=== PATIENT | male | born 1965 | race Caucasian/White ===

== ENCOUNTER → 2017-07-27 | Outpatient (CLI) | payer OTHER ==
[~2017-07-27] MED LIST: KLN5X PO; METO50TA17 PO; SIMV20TA2 PO
--- NOTE | 2017-07-27 17:21 | DIAGNOSTIC IMAGING REPORT ---
L-SPINE MIN 4 VIEWS ROUTINE CLINICAL HISTORY: Back pain status post trauma COMPARISON STUDY: No previous studies for comparison. FINDINGS: There are 5 lumbar type vertebral bodies present. No fractures or subluxations are visualized. There are degenerative changes most pronounced the L5-S1 level. IMPRESSION: 1. No acute fractures 2. Degenerative changes most pronounced the L5-S1 level Electronically signed by: Smooth Forde M.D. 07/27/2017 5:20 PM Dictated Date/Time: 07/27/2017 5:19 PM
--- NOTE | 2017-07-27 17:26 | DIAGNOSTIC IMAGING REPORT ---
THORACIC SPINE 3 VIEWS ROUTINE CLINICAL HISTORY: Thoracic spine pain status post trauma COMPARISON STUDY: No previous studies for comparison. FINDINGS: The paraspinal line is not displaced. There is a mild thoracic dextroscoliosis. There are multilevel degenerative changes. No acute fractures are visualized on conventional radiographic imaging. IMPRESSION: Multilevel degenerative change. No acute fractures or subluxations identified on conventional radiographic imaging. Thoracic scoliosis. Electronically signed by: Smooth Forde M.D. 07/27/2017 5:25 PM Dictated Date/Time: 07/27/2017 5:24 PM
--- NOTE | 2017-07-27 17:28 | DIAGNOSTIC IMAGING REPORT ---
L RIBS UNILATERAL WITH PA CHEST CLINICAL HISTORY: Left rib pain status post trauma COMPARISON STUDY: No previous studies for comparison. FINDINGS: The erect chest reveals no evidence of pneumothorax. There is no focal pulmonary consolidation. No left-sided rib fractures are visualized. IMPRESSION: No evidence of pneumothorax. No left-sided rib fractures are visualized. Electronically signed by: Smooth Forde M.D. 07/27/2017 5:27 PM Dictated Date/Time: 07/27/2017 5:26 PM
== END | disposition home or self-care (01) ==
LOC: C.RAD 15:50
PROVIDERS: ATTEND Internal Medicine
DX: T14.8XXA Other injury of unspecified body region, initial encounter (principal); W19.XXXA Unspecified fall, initial encounter

== ENCOUNTER 2022-09-08 07:45 | Inpatient (IN) ==
[2022-09-08] MEDS ORDERED: SODIUM CHLORIDE 0.9% 1000ML 1,000 ML IV SCH ×2 (08:17→10:06)
--- NOTE | 2022-09-08 08:21 | Emergency Department Note ---
History of Present Illness General Chief complaint: Illness Stated complaint: CHILLS,FEVER,NEURO ISSUES WITH LEGS,FALL Time Seen by Provider: 09/08/22 07:56 History of Present Illness Maximum Pain Intensity: 7 Patient is a 57-year-old male with past medical history significant for hyperte nsion, A-fib on metoprolol and Xarelto, dyslipidemia, anxiety disorder, and history of ataxia/lower extremity weakness who presents emergency department for evaluation of an illness x1 week. He reports subjective fever, chills, sweats, cough, nausea and anorexia that started last Thursday, 9 days ago. He reports decreased oral intake, no vomiting but has had diarrhea. He reports he has been compliant with his medications, except for missing a dose of Xarelto last week. He has tried Tylenol Cold and Flu for his symptoms without relief. He is not sleeping well. He reports that he has been evaluated for a chronic lower extremity weakness/balance disorder in the past with unclear diagnosis. Since he has been ill he has had worsening lower extremity weakness, he had a fall a few days ago where he hit the right calf off of his coffee table and since then it has been swollen and painful. He has been feeling generally weak and dizzy. He has not done any type of COVID testing. He does report he is vaccinated for COVID but not influenza. No sick contacts. He tried to call his family doctor but cannot get in until September. He denies any chest pain, shortness of breath, or palpitations. Home Medications Medication Instructions Recorded Confirmed Type metoprolol tartrate 50 mg tablet 50 mg PO BID #60 tabs 01/17/19 09/08/22 History rivaroxaban 20 mg tablet 20 mg PO DAILY #90 tabs 01/17/19 09/08/22 History simvastatin 40 mg tablet 40 mg PO DAILY #90 tabs 01/17/19 09/08/22 History B-complex with vitamin C 1 cap PO DAILY 09/08/22 09/08/22 History Allergies Allergy/AdvReac Type Severity Reaction Status Date / Time Penicillins Allergy Unknown Verified 09/08/22 13:14 Past Med/Surg History Medical History Anticoagulant long-term use Ataxia Atrial fibrillation Bilateral pulmonary embolism Degenerative cervical spinal stenosis DVT (deep venous thrombosis) Hypercholesterolemia Leg weakness, bilateral Muscle weakness (generalized) 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 Panic disorder Rupture of left biceps tendon Tobacco use Surgical History H/O medial meniscus repair of right knee Family History Father Cardiac disorder Stroke Brother Testicular cancer Social History Smoking Status: Never smoker Tobacco Type: Smokeless Tobacco (Dip or Chew) Do You Dip or Chew Tobacco: Yes; Hx Alcohol Use: Yes Alcohol type: beer Alcohol type Comment: 2 drinks at time Alcohol Intake Frequency: 2-3 x/Week Hx Substance Use: No Current Living Situation: Alone current occupational status: employed 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 [employer] Feels Safe at Home: Yes Review of Systems A total of 10 systems reviewed and were otherwise negative Physical Exam Vital Signs Vital Signs - 24 hr 09/08/22 07:49 09/08/22 08:02 09/08/22 08:20 Temperature 37.2 C Temperature Source Skin Pulse Rate 100 H 92 H Pulse Rate [Right Finger] 93 H Pulse Rate from SpO2 Sensor Pulse Rhythm [Right Finger] Regular Pulse Strength [Right Finger] Respiratory Rate 20 18 Respiratory Effort / Characteristics Non-Labored Spontaneous Non-Labored Spontaneous Respiratory Depth Normal Normal Respiratory Pattern Regular Regular Blood Pressure 175/95 H Blood Pressure [Left Arm] 164/105 H Blood Pressure Mean 121 Blood Pressure Mean [Left Arm] 124 Blood Pressure Position [Left Arm] Semi-fowlers Pulse Oximetry 95 96 Oxygen Delivery Method Room Air Room Air Sepsis Recent Fever Within 48 Hours No Sepsis New/Unexplained Change in Mental Status N/A Sepsis Action Taken by Nursing No Action Required 09/08/22 10:00 09/08/22 09:00 09/08/22 08:09 Temperature Temperature Source Pulse Rate 94 H Pulse Rate [Right Finger] 94 H 87 Pulse Rate from SpO2 Sensor 96 H Pulse Rhythm [Right Finger] Regular Regular Pulse Strength [Right Finger] Normal Respiratory Rate 21 20 22 Respiratory Effort / Characteristics Non-Labored Spontaneous Non-Labored Spontaneous Respiratory Depth Normal Normal Respiratory Pattern Regular Regular Blood Pressure Blood Pressure [Left Arm] 148/88 H 150/91 H Blood Pressure Mean Blood Pressure Mean [Left Arm] 108 110 Blood Pressure Position [Left Arm] Lying Lying Pulse Oximetry 95 94 96 Oxygen Delivery Method Room Air Room Air Sepsis Recent Fever Within 48 Hours Sepsis New/Unexplained Change in Mental Status Sepsis Action Taken by Nursing 09/08/22 08:30 09/08/22 09:00 09/08/22 09:00 Temperature Temperature Source Pulse Rate 91 H 87 Pulse Rate [Right Finger] Pulse Rate from SpO2 Sensor Pulse Rhythm [Right Finger] Pulse Strength [Right Finger] Respiratory Rate 21 19 Respiratory Effort / Characteristics Respiratory Depth Respiratory Pattern Blood Pressure 150/91 H Blood Pressure [Left Arm] Blood Pressure Mean 110 Blood Pressure Mean [Left Arm] Blood Pressure Position [Left Arm] Pulse Oximetry Oxygen Delivery Method Sepsis Recent Fever Within 48 Hours Sepsis New/Unexplained Change in Mental Status Sepsis Action Taken by Nursing 09/08/22 10:00 09/08/22 10:00 09/08/22 10:34 Temperature Temperature Source Pulse Rate 94 H Pulse Rate [Right Finger] Pulse Rate from SpO2 Sensor Pulse Rhythm [Right Finger] Pulse Strength [Right Finger] Respiratory Rate 21 15 Respiratory Effort / Characteristics Respiratory Depth Respiratory Pattern Blood Pressure 148/88 H Blood Pressure [Left Arm] Blood Pressure Mean 108 Blood Pressure Mean [Left Arm] Blood Pressure Position [Left Arm] Pulse Oximetry Oxygen Delivery Method Sepsis Recent Fever Within 48 Hours Sepsis New/Unexplained Change in Mental Status Sepsis Action Taken by Nursing 09/08/22 11:01 09/08/22 11:30 09/08/22 12:00 Temperature Temperature Source Pulse Rate 104 H 92 H 95 H Pulse Rate [Right Finger] Pulse Rate from SpO2 Sensor Pulse Rhythm [Right Finger] Pulse Strength [Right Finger] Respiratory Rate 20 19 22 Respiratory Effort / Characteristics Respiratory Depth Respiratory Pattern Blood Pressure 180/103 H Blood Pressure [Left Arm] Blood Pressure Mean 128 Blood Pressure Mean [Left Arm] Blood Pressure Position [Left Arm] Pulse Oximetry 93 Oxygen Delivery Method Room Air Sepsis Recent Fever Within 48 Hours Sepsis New/Unexplained Change in Mental Status Sepsis Action Taken by Nursing CONSTITUTIONAL: Patient is a well-appearing 57-year-old male who is awake and alert and in no acute distress laying on the gurney. EYES: Pupils equal, round, reactive to light and accommodation. EOMs intact without nystagmus. Sclera are anicteric. ENT: Tympanic membranes intact, with normal landmarks. External canals are clear. Oral and nasopharynx are clear. Mucous membranes are moist, no lesions, tongue and gums appear normal. NECK: Supple without lymphadenopathy. No thyromegaly. No meningeal signs. Full active range of motion without discomfort. CARDIOVASCULAR: Regular rate and rhythm, no murmur appreciated. Peripheral pulses easy to palpable. RESPIRATORY: Breath sounds equal and clear to auscultation without wheezes, rales, or rhonchi heard. Full and equal chest expansion without accessory musc le use or retractions. GI: Bowel sounds are present. Well-healed surgical scar noted. Abdomen is soft, nontender, nondistended. No organomegaly. No pulsatile masses. No guarding or rebound. MUSCULOSKELETAL: Examination of the right lower extremity notes mild swelling of the right calf. The calf is firm to the touch, no erythema, increased warmth, induration or palpable cords however. 1+ pitting edema noted. Full range of motion of extremities x 4 with good strength. INTEGUMENTARY: No lesions or rash, normal skin turgor. NEUROLOGICAL: Alert, oriented, and cooperative. Cranial nerves, sensation and strength grossly intact. Pupils round, equal, and react to light, EOMs are full. LYMPH: No lymphadenopathy. Course Course Patient was seen and assessed as above. External medical records are reviewed. He presents to the emergency department for evaluation of a "flulike" illness over the last week, with associated right leg pain and swelling in the history of a DVT in the past. He is chronically anticoagulated with Xarelto. He does note that his last dose of Xarelto was early yesterday morning. He missed 1 dose last week as his prescription was about to run out and he was trying to stretch the prescription. IV lock was initiated and laboratory studies were collected. CBC with differential, coags, urinalysis, CMP and a BioFire nasal swab was collected. He was hydrated with normal saline solution. He was observed on the satellite project site monitor. EKG and chest x-ray were obtained. A Doppler of the right lower extremity was performed. Laboratory studies per my interpretation note a normal white count at 7100, left shift noted. No anemia. No coagulopathy. No thrombocytopenia. Electrolytes are without significant abnormality requiring correction. Renal functions are normal. Transaminases are not elevated. Urine microscopy was clear. A BioFire was negative for acute viral URI pathology. Chest x-ray per my interpretation is clear, no infiltrate consistent with pneumonia. Ultrasound of the right lower extremity per my interpretation is consistent with extensive DVT. EKG per my interpretation notes a normal sinus rhythm at 87 bpm. No ectopy. No acute ischemic changes. No change on review of old EKG from 2015. Cardiac monitoring: An order was placed for continuous cardiac monitoring. The monitor shows a sinus tachycardia between 90 and 100 bpm. Patient was reassessed. All laboratory studies, EKG, x-ray and ultrasound were reviewed with the patient. Given the extent of the right lower extremity DVT, I did recommend performing CT of the chest to evaluate for chest involvement. He was in agreement. CTA of the chest per my interpretation notes bilateral pulmonary emboli with evidence for right heart strain. CT findings were reviewed with the patient. After review of the information above and other included data, I feel the patient requires admission for further care and appropriate anticoagulation. Case was reviewed with attending physician, Dr. Rosales, and discussed with the ED pharmacist, Bia Ma. He was started on weight-based heparin per protocol. I did review the case with the ED for human services case manager regarding admission. [facility], and admitted for further care and management. Administered Medications Heparin Sodium/Dextrose (Heparin Sodium/Dextrose) 25,000 units in 500 mls @ 26 mls/hr IV .[id number] OMID; Protocol Stop: 10/08/22 11:44 Last Admin: 09/08/22 12:11 Dose: 1,300 units/hr, 26 mls/hr Documented By: Co-signed By: LOLLY Discontinued Medications Heparin Sodium (Porcine) (Heparin Sod (Porcine) 1000 Unit/Ml) 1 units IV NOW ONE Stop: 09/08/22 11:36 Last Admin: 09/08/22 12:10 Dose: 6,000 units Documented By: Co-signed By: LOLLY Heparin Sodium/Dextrose (Heparin Iv Adult Wt-Based Standard With Bolus Protocol) 1 each IV NOW STA; Protocol Stop: 09/08/22 11:16 Last Admin: 09/08/22 12:19 Dose: Not Given Documented By: LOLLY Sodium Chloride (Nss 1000ml) 1,000 mls @ 999 mls/hr IV .Q1H1M OMID Stop: 09/08/22 09:17 Last Infusion: 09/08/22 10:05 Dose: 0 mls/hr Documented By: Admin: 09/08/22 08:53 Dose: 999 mls/hr Documented By: Sodium Chloride (Nss 1000ml) 1,000 mls @ 999 mls/hr IV .Q1H1M OMID Stop: 09/08/22 11:06 Last Infusion: 09/08/22 12:11 Dose: 0 mls/hr Documented By: Admin: 09/08/22 10:54 Dose: 999 mls/hr Documented By: LOLLY Ioversol (Optiray 320 125ml) 111 ml IV ONCE ONE Stop: 09/08/22 10:34 Last Admin: 09/08/22 10:33 Dose: 111 ml Documented By: MELISSA Medical Decision Making Differential Diagnosis Differential diagnoses entertained included viral illness including COVID or i nfluenza, right lower extremity DVT, cellulitis, superficial thrombophlebitis, pulmonary embolism, pneumonia, ACS, bronchitis, pulmonary infarct, among others. Medical Records Attestation: I reviewed the patient's medical records. Home Medications Current Medication List: was personally reviewed by me Laboratory Data Attestation: I reviewed the patient's lab results. 09/08/22 08:40 09/08/22 08:40 Lab Results 09/08/22 09/08/22 09/08/22 Range/Units 08:40 08:40 08:40 WBC 7.14 (4.8-10.8) K/ul RBC 4.68 L (4.70-6.10) M/uL Hgb 14.9 (14.0-18.0) g/dl Hct 44.4 (42.0-52.0) % MCV 94.9 (80.0-100.0) fL MCH 31.8 (25.0-34.0) pg MCHC 33.6 (32.0-36.0) g/dL RDW Std Deviation 45.6 (36.4-46.3) fL RDW Coeff of Jacquelyn 13.2 (11.5-14.5) % Plt Count 136 (130-400) K/uL MPV 9.4 (9.4-12.4) fL Immature Gran % (Auto) 0.1 % Neut % (Auto) 75.9 % Lymph % (Auto) 12.9 % [place] % (Auto) 9.8 % Eos % (Auto) 0.6 % Baso % (Auto) 0.7 % Neut # (Auto) 5.42 (1.40-6.50) K/uL Lymph # (Auto) 0.92 L (1.2-3.4) K/uL [place] # (Auto) 0.70 H (0.11-0.59) K/uL Eos # (Auto) 0.04 (0-0.50) K/uL Baso # (Auto) 0.05 (0-0.2) K/uL Immature Gran # (Auto) 0.01 (0.01-0.20) K/uL PT 10.7 (9.0-12.0) Seconds INR 1.0 (0.9-1.1) APTT 28.0 (21.0-31.0) Seconds PTT Ratio 1.0 Sodium 135 L (136-145) mmol/L Potassium 3.5 (3.5-5.1) mmol/L Chloride 99 (98-107) mmol/L Carbon Dioxide 26 (21-32) mmol/L Anion Gap 10 (3-11) BUN 8 (6-23) mg/dl Creatinine 0.65 (0.6-1.4) mg/dl Est Cr Clr Drug Dosing 123.9 ml/min Est GFR ( Amer) 124.3 ml/min Est GFR (Non-Af Amer) 107.2 ml/min BUN/Creatinine Ratio 12.3 (10-20) Glucose 110 H (70-99(Fasting)) mg/dl Calcium 9.0 (8.5-10.1) mg/dl Total Bilirubin 0.9 (0.2-1.0) mg/dl AST 35 (13-39) U/L ALT 42 (7-52) U/L Alkaline Phosphatase 28 L (34-104) U/L Troponin I High Sens 2.8 (0-20) pg/ml Total Protein 7.0 (6.0-8.3) gm/dl Albumin 4.0 (3.4-5.0) gm/dl Globulin 3.0 (2.5-4.0) gm/dl Albumin/Globulin Ratio 1.3 (0.9-2) Urine Color Urine Appearance (Clear) Urine pH (4.5-7.5) Ur Specific [place] (1.000-1.030) Urine Protein (Negative) Urine Glucose (UA) (Negative) Urine Ketones (Negative) Urine Blood (Negative) Urine Nitrite (Negative) Urine Bilirubin (Negative) Urine Urobilinogen (Negative) Ur Leukocyte Esterase (Negative) Urine WBC (Auto) (0-5) /hpf Urine RBC (Auto) (0-4) /hpf U Hyaline Cast (Auto) (0-5) /lpf U Epithel Cells (Auto) (0-5) /lpf Urine Bacteria (Auto) (Negative) Adenovirus (PCR) (NotDetected) B. pertussis DNA (PCR) (NotDetected) B.parapertussis DNA PCR (NotDetected) C. pneumoniae DNA (PCR) (NotDetected) Coronavirus OC43 (PCR) (NotDetected) Coronavirus HKU1 (PCR) (NotDetected) Coronavirus 229E (PCR) (NotDetected) SARS-CoV-2 (PCR) (NotDetected) Coronavirus NL63 (PCR) (NotDetected) Human Metapneumovir PCR (NotDetected) Influenza Type A (PCR) (NotDetected) Influenza Type B (PCR) (NotDetected) M. pneumoniae (PCR) (NotDetected) Parainfluenza 1 (PCR) (NotDetected) Parainfluenza 2 (PCR) (NotDetected) Parainfluenza 3 (PCR) (NotDetected) Parainfluenza 4 (PCR) (NotDetected) RSV (PCR) (NotDetected) Entero/Rhino (PCR) (NotDetected) 09/08/22 09/08/22 09/08/22 Range/Units 08:40 08:40 09:15 WBC (4.8-10.8) K/ul RBC (4.70-6.10) M/uL Hgb (14.0-18.0) g/dl Hct (42.0-52.0) % MCV (80.0-100.0) fL MCH (25.0-34.0) pg MCHC (32.0-36.0) g/dL RDW Std Deviation (36.4-46.3) fL RDW Coeff of Jacquelyn (11.5-14.5) % Plt Count (130-400) K/uL MPV (9.4-12.4) fL Immature Gran % (Auto) % Neut % (Auto) % Lymph % (Auto) % [place] % (Auto) % Eos % (Auto) % Baso % (Auto) % Neut # (Auto) (1.40-6.50) K/uL Lymph # (Auto) (1.2-3.4) K/uL [place] # (Auto) (0.11-0.59) K/uL Eos # (Auto) (0-0.50) K/uL Baso # (Auto) (0-0.2) K/uL Immature Gran # (Auto) (0.01-0.20) K/uL PT (9.0-12.0) Seconds INR (0.9-1.1) APTT (21.0-31.0) Seconds PTT Ratio Sodium (136-145) mmol/L Potassium (3.5-5.1) mmol/L Chloride (98-107) mmol/L Carbon Dioxide (21-32) mmol/L Anion Gap (3-11) BUN (6-23) mg/dl Creatinine (0.6-1.4) mg/dl Est Cr Clr Drug Dosing ml/min Est GFR ( Amer) ml/min Est GFR (Non-Af Amer) ml/min BUN/Creatinine Ratio (10-20) Glucose (70-99(Fasting)) mg/dl Calcium (8.5-10.1) mg/dl Total Bilirubin (0.2-1.0) mg/dl AST (13-39) U/L ALT (7-52) U/L Alkaline Phosphatase (34-104) U/L Troponin I High Sens Cancelled (0-20) pg/ml Total Protein (6.0-8.3) gm/dl Albumin (3.4-5.0) gm/dl Globulin (2.5-4.0) gm/dl Albumin/Globulin Ratio (0.9-2) Urine Color [place] Urine Appearance Clear (Clear) Urine pH 7.0 (4.5-7.5) Ur Specific [place] 1.006 (1.000-1.030) Urine Protein Trace H (Negative) Urine Glucose (UA) Negative (Negative) Urine Ketones 1+ H (Negative) Urine Blood Negative (Negative) Urine Nitrite Negative (Negative) Urine Bilirubin Negative (Negative) Urine Urobilinogen Negative (Negative) Ur Leukocyte Esterase Negative (Negative) Urine WBC (Auto) 0 (0-5) /hpf Urine RBC (Auto) 0-4 (0-4) /hpf U Hyaline Cast (Auto) 0 (0-5) /lpf U Epithel Cells (Auto) 0-5 (0-5) /lpf Urine Bacteria (Auto) Negative (Negative) Adenovirus (PCR) Not Detected (NotDetected) B. pertussis DNA (PCR) Not Detected (NotDetected) B.parapertussis DNA PCR Not Detected (NotDetected) C. pneumoniae DNA (PCR) Not Detected (NotDetected) Coronavirus OC43 (PCR) Not Detected (NotDetected) Coronavirus HKU1 (PCR) Not Detected (NotDetected) Coronavirus 229E (PCR) Not Detected (NotDetected) SARS-CoV-2 (PCR) Not Detected (NotDetected) Coronavirus NL63 (PCR) Not Detected (NotDetected) Human Metapneumovir PCR Not Detected (NotDetected) Influenza Type A (PCR) Not Detected (NotDetected) Influenza Type B (PCR) Not Detected (NotDetected) M. pneumoniae (PCR) Not Detected (NotDetected) Parainfluenza 1 (PCR) Not Detected (NotDetected) Parainfluenza 2 (PCR) Not Detected (NotDetected) Parainfluenza 3 (PCR) Not Detected (NotDetected) Parainfluenza 4 (PCR) Not Detected (NotDetected) RSV (PCR) Not Detected (NotDetected) Entero/Rhino (PCR) Not Detected (NotDetected) Imaging Data Attestation: I personally reviewed and interpreted this imaging study as follows: Radiologist's Impression: Chest X-Ray 09/08/22 08:16 SINGLE VIEW CHEST CLINICAL HISTORY: Cough and fever. Generalized weakness. FINDINGS: An AP, portable, upright chest radiograph is compared to study dated 07/27/2017. The examination is degraded by portable technique and apical lordotic positioning. The cardiomediastinal silhouette is unremarkable. There is mild elevation of the right hemidiaphragm and bibasilar atelectasis. The lungs and pleural spaces are otherwise clear. No pneumothorax is seen. The bony thorax is grossly intact. IMPRESSION: No active disease in the chest. ACT 112: Negative or not required by law. Electronically signed by: Mian Mccrary M.D. 09/08/2022 8:49 AM Venous Doppler Study 09/08/22 08:16 ULTRASOUND RIGHT LOWER EXTREMITY VENOUS CLINICAL HISTORY: Right leg pain and swelling. History of deep venous thrombosis. COMPARISON STUDY: No priors. TECHNIQUE: Real-time, grayscale, and color Doppler sonography of the deep veins of the right lower extremity was performed from the inguinal crease to the calf. Compression and augmentation were utilized. FINDINGS: There is extensive nearly occlusive to occlusive deep venous thrombosis seen throughout the right lower extremity. This extends from the common femoral vein, throughout the superficial femoral vein, and into the popliteal vein. Thrombus extends into the calf within branches of the posterior tibial and peroneal veins. The greater saphenous vein at the junction with the common femoral vein is clear. The left common femoral vein is patent. IMPRESSION: Extensive nearly occlusive to occlusive right lower extremity deep venous thrombosis as above. ACT 112: Negative or not required by law. Electronically signed by: Mian Mccrary M.D. 09/08/2022 9:50 AM Chest CTA 09/08/22 10:06 CT angio chest PE protocol CT DOSE: 454.39 mGycm HISTORY: 57 years-old Male with PE. Acute shortness of breath TECHNIQUE: Multiple CTA images of the chest were obtained after the intravenous administration of 111 ml Optiray. Coronal and sagittal MIPS were obtained from the axial data set and were submitted for review. All measurements were obtained according to NASCET criteria. A dose lowering technique was utilized adhering to the principles of ALARA. COMPARISON: Duplex venous Doppler study of same day FINDINGS: CTA: The heart is normal in size. Moderate coronary artery calcifications. There is no pericardial effusion. No thoracic aortic aneurysm. Bilateral lobar, segmental and subsegmental pulmonary emboli. No central pulmonary embolus. Mild straightening of the intraventricular septum. CT CHEST: Unremarkable thyroid. No lymphadenopathy. No pneumothorax, pleural effusion, airspace consolidation or pulmonary edema. No suspicious pulmonary nodules or masses identified. 4 mm subpleural solid nodule within the left lower lobe on image 110 series 4 is unchanged and benign. Central airways are patent. No acute process of the imaged upper abdomen. Hepatic steatosis. No acute fracture. Mild mid thoracic dextroscoliosis. Degenerative changes of the shoulders and spine. IMPRESSION: 1. Considerable amount of bilateral pulmonary emboli with findings suggestive of associated right heart strain. 2. No pleural effusion or airspace consolidation to suggest pulmonary infarct. ACT 112: Negative or not required by law. The above report was generated using voice recognition software. It may contain grammatical, syntax or spelling errors. Electronically signed by: Boaz Schneider M.D. 09/08/2022 10:59 AM ECG Data Attestation: I personally reviewed and interpreted this ECG as follows: Indication: + weakness Rate (beats per minute): 87 Rhythm: + normal sinus ECG Athena: + Normal ECG ST segments: + Normal ST segments Comparison ECG Date: from (2014) Change: no significant change MDM Narrative See ED Course. Impression & Plan Bilateral pulmonary embolism, Chronic anticoagulation, Acute deep vein thrombosis (DVT) of right lower extremity, Atrial fibrillation Discharge Plan Visit Data Chief Complaint: Illness Stated Complaint: CHILLS,FEVER,NEURO ISSUES WITH LEGS,FALL ED Provider: Yehuda Rosales ED Midlevel Provider: Adam Brown Discharge Problem: Bilateral pulmonary embolism, Chronic anticoagulation, Acute deep vein thrombosis (DVT) of right lower extremity, Atrial fibrillation Patient Disposition: Admitted As Inpatient Discharge Instructions Interventions: ED Discharge Assessment Last Done: 09/08/22 14:23
--- NOTE | 2022-09-08 08:50 | XRay Report ---
SINGLE VIEW CHEST CLINICAL HISTORY: Cough and fever. Generalized weakness. FINDINGS: An AP, portable, upright chest radiograph is compared to study dated 07/27/2017. The examinat ion is degraded by portable technique and apical lordotic positioning. The cardiomediastinal silhouet te is unremarkable. There is mild elevation of the right hemidiaphragm and bibasilar atelectasis. The lungs and pleural spaces are otherwise clear. No pneumothorax is seen. The bony thorax is grossly in tact. IMPRESSION: No active disease in the chest. ACT 112: Negative or not required by law. Electronically signed by: Mian Mccrary M.D. 09/08/2022 8:49 AM
[2022-09-08 09:02] LABS: Basophils # (auto) 0.05 K/uL (0-0.2); Basophils % (auto) 0.7 %; Eosinophils # (auto) 0.04 K/uL (0-0.50); Eosinophils % (auto) 0.6 %; Hematocrit (blood only) 44.4 % (42.0-52.0); Hemoglobin 14.9 g/dl (14.0-18.0); Immature Granulocytes # (auto) 0.01 K/uL (0.01-0.20); Immature Granulocytes % (auto) 0.1 %; Lymphocytes # (auto) 0.92 K/uL (1.2-3.4); Lymphocytes % (auto) 12.9 %; Mean Corpuscular Hemoglobin 31.8 pg (25.0-34.0); Mean Corpuscular Hgb Conc 33.6 g/dL (32.0-36.0); Mean Corpuscular Volume 94.9 fL (80.0-100.0); Mean Platelet Volume 9.4 fL (9.4-12.4); Monocytes % (auto) 9.8 %; Neutrophils # (auto) 5.42 K/uL (1.40-6.50); Neutrophils % (auto) 75.9 %; Platelet Count 136 K/uL (130-400); RDW Coefficient of Variation 13.2 % (11.5-14.5); RDW Standard Deviation 45.6 fL (36.4-46.3); Red Blood Count 4.68 M/uL (4.70-6.10); White Blood Count 7.14 K/ul (4.8-10.8)
[2022-09-08 09:15] LABS: Albumin Globulin Ratio 1.3 (0.9-2); BUN Creatinine Ratio 12.3 (10-20); Bilirubin,Total 0.9 mg/dl (0.2-1.0); Creatinine Clr Calc Pharmacy 123.9 ml/min; Est GFR (African American) 124.3 ml/min; Est GFR (Non-African American) 107.2 ml/min; Potassium 3.5 mmol/L (3.5-5.1)
[2022-09-08 09:31] LABS: Prothrombin Time 10.7 Seconds (9.0-12.0)
[2022-09-08 09:37] LABS: Appearance Urine Clear (Clear); Bacteria Urine Automated Negative (Negative); Bilirubin Urine Negative (Negative); Blood Urine Negative (Negative); Cast Urine Automated 0 /lpf (0-5); Color Urine Orange; Epithelial Cell Urine Auto 0-5 /lpf (0-5); Glucose Urine UA Negative (Negative); Ketones Urine 1+ (Negative); Leukocyte Esterase Urine Negative (Negative); Nitrite Urine Negative (Negative); Protein Urine Trace (Negative); RBC Urine Automated 0-4 /hpf (0-4); Specific Gravity Urine 1.006 (1.000-1.030); Urobilinogen Urine Negative (Negative); WBC Urine Automated 0 /hpf (0-5)
--- NOTE | 2022-09-08 09:51 | Ultrasound Report ---
ULTRASOUND RIGHT LOWER EXTREMITY VENOUS CLINICAL HISTORY: Right leg pain and swelling. History of deep venous thrombosis. COMPARISON STUDY: No priors. TECHNIQUE: Real-time, grayscale, and color Doppler sonography of the deep veins of the right lower ex tremity was performed from the inguinal crease to the calf. Compression and augmentation were utilize d. FINDINGS: There is extensive nearly occlusive to occlusive deep venous thrombosis seen throughout the right lower extremity. This extends from the common femoral vein, throughout the superficial femoral vein, and into the popliteal vein. Thrombus extends into the calf within branches of the posterior t ibial and peroneal veins. The greater saphenous vein at the junction with the common femoral vein is clear. The left common femoral vein is patent. IMPRESSION: Extensive nearly occlusive to occlusive right lower extremity deep venous thrombosis as a tayla. ACT 112: Negative or not required by law. Electronically signed by: Mian Mccrary M.D. 09/08/2022 9:50 AM
[2022-09-08 10:03] LABS: Adenovirus PCR Not Detected (NotDetected); Bordetella parapertussis PCR Not Detected (NotDetected); Bordetella pertussis PCR Not Detected (NotDetected); Chlamydia pneumoniae PCR Not Detected (NotDetected); Coronavirus 229E PCR Not Detected (NotDetected); Coronavirus CoV-2 (COVID19)PCR Not Detected (NotDetected); Coronavirus HKU1 PCR Not Detected (NotDetected); Coronavirus NL63 PCR Not Detected (NotDetected); Coronavirus OC43PCR Not Detected (NotDetected); Human Metapneumovirus PCR Not Detected (NotDetected); Influenza A PCR Not Detected (NotDetected); Influenza B PCR Not Detected (NotDetected); Mycoplasma pneumoniae PCR Not Detected (NotDetected); Parainfluenza Virus 1 PCR Not Detected (NotDetected); Parainfluenza Virus 2 PCR Not Detected (NotDetected); Parainfluenza Virus 3 PCR Not Detected (NotDetected); Parainfluenza Virus 4 PCR Not Detected (NotDetected); Respiratory Syncytial VirusPCR Not Detected (NotDetected); Rhinovirus/Enterovirus PCR Not Detected (NotDetected)
[2022-09-08] MEDS ORDERED: OPTIRAY 320 125ml IV ONE (10:33)
--- NOTE | 2022-09-08 11:02 | CT Scan Report ---
CT angio chest PE protocol CT DOSE: 454.39 mGycm HISTORY: 57 years-old Male with PE. Acute shortness of breath TECHNIQUE: Multiple CTA images of the chest were obtained after the intravenous administration of 111 ml Optiray. Coronal and sagittal MIPS were obtained from the axial data set and were submitted for review. All measurements were obtained according to NASCET criteria. A dose lowering technique was u tilized adhering to the principles of ALARA. COMPARISON: Duplex venous Doppler study of same day FINDINGS: CTA: The heart is normal in size. Moderate coronary artery calcifications. There is no pericardial effusio n. No thoracic aortic aneurysm. Bilateral lobar, segmental and subsegmental pulmonary emboli. No cent ral pulmonary embolus. Mild straightening of the intraventricular septum. CT CHEST: Unremarkable thyroid. No lymphadenopathy. No pneumothorax, pleural effusion, airspace consolidation o r pulmonary edema. No suspicious pulmonary nodules or masses identified. 4 mm subpleural solid nodule within the left lower lobe on image 110 series 4 is unchanged and benign. Central airways are patent . No acute process of the imaged upper abdomen. Hepatic steatosis. No acute fracture. Mild mid thoracic dextroscoliosis. Degenerative changes of the shoulders and spine. IMPRESSION: 1. Considerable amount of bilateral pulmonary emboli with findings suggestive of associated right hea rt strain. 2. No pleural effusion or airspace consolidation to suggest pulmonary infarct. ACT 112: Negative or not required by law. The above report was generated using voice recognition software. It may contain grammatical, syntax o r spelling errors. Electronically signed by: Boaz Schneider M.D. 09/08/2022 10:59 AM
--- NOTE | 2022-09-08 11:06 | Electrocardiogram Report ---
Test Reason : Blood Pressure : / mmHG Vent. Rate : 087 BPM Atrial Rate : 087 BPM P-R Int : 126 ms QRS Dur : 080 ms QT Int : 388 ms P-R-T Axes : 079 032 057 degrees QTc Int : 466 ms Poor data quality, interpretation may be adversely affected Normal sinus rhythm Possible Left atrial enlargement Borderline ECG When compared with ECG of 18-JAN-2015 12:00, No significant change was found Confirmed by Adam Rocha ([id number]) on 09/08/2022 11:06:11 AM Referred By: REFERRED SELF Confirmed By:Temo Rocha
[2022-09-08] MEDS ORDERED: Heparin IV Adult Wt-Based Standard WITH Bolus Protocol IV STA (11:15)
[2022-09-08] MEDS ORDERED: HEPARIN SOD (PORCINE) 1000 UNIT/ML IV ONE (11:35)
[2022-09-08] MEDS: HEPARIN SODIUM/DEXTROSE 25,000 UNITS/500 ML BAG IV SCH (12:11)
[2022-09-08 12:42] LABS: Troponin I High Sensitivity 2.8 pg/ml (0-20)
--- NOTE | 2022-09-08 13:00 | History & Physical Report ---
Date of Service September 08, 2022 Assessment & Plan (1) Bilateral pulmonary embolism: Plan: Provoked DVT with recent illness, sedentary behavior given recent URI, treated with abx as outpatient. This was followed by trauma to the RLE on Thursday and subsequent development of a DVT complicated by PE. Xarelto put on hold and heparin drip was started. This may not be a treatment failure for Xarelto, and would speak with hematology about the case prior to restarting definitive oral anticoagulation. For now, he is tachycardic, and will be admitted to the hospital and kept on monitor. Pulmonary consulted. Toradol/Tylenol ok for pain as needed. Watch for any bleeding issues. (2) Acute deep vein thrombosis (DVT) of right lower extremity: Plan: UMBERTO naeem applied now. Cont plan as above. (3) Chronic anticoagulation: Plan: On chronic Xarelto for afib which is currently on hold. (4) Atrial fibrillation: Plan: paroxysmal, currently in sinus rhythm. Continues on metoprolol per home regimen, and anticoagulation with heparin. DVT proph: heparin, TEDs Full Code [facility] History of Present Illness Chief Complaint: right leg pain Primary Care Provider: Malgorzata Vora MD 57 yo man with a recent URI treated wtih Augmentin states he was very sedentary last week from being sick and subsequently felt RLE pain after banging his R calf into the coffee table at home on Thursday. He reports that Sat and Sun he had terrible pain and was unable to walk. As it wasn't getting better he came in this am and has a RLE DVT with acute PE and evidence of right heart strain on the CT scan. He does report some dyspnea with exertion that began this morning but is not requiring oxygen. He does have tachycardia but is otherwise normotensive. He has a h/o atrial fibrillation and has been on Xarelto since 2016. He reports a h/o previous blood clot in his left left that was provoked by a surgery followed by prolonged time in a CAM boot. He denies any chest pain or other issues at this time. Allergies Allergy/AdvReac Type Severity Reaction Status Date / Time Penicillins Allergy Unknown Verified 09/08/22 13:14 Home Medications Medication Instructions Recorded Confirmed Type metoprolol tartrate 50 mg tablet 50 mg PO BID #60 tabs 01/17/19 09/08/22 History rivaroxaban 20 mg tablet 20 mg PO DAILY #90 tabs 01/17/19 09/08/22 History simvastatin 40 mg tablet 40 mg PO DAILY #90 tabs 01/17/19 09/08/22 History B-complex with vitamin C 1 cap PO DAILY 09/08/22 09/08/22 History Past Med/Surg History Medical History Anticoagulant long-term use Ataxia Atrial fibrillation Bilateral pulmonary embolism Degenerative cervical spinal stenosis DVT (deep venous thrombosis) Hypercholesterolemia Leg weakness, bilateral Muscle weakness (generalized) 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 Panic disorder Rupture of left biceps tendon Tobacco use Surgical History H/O medial meniscus repair of right knee Family History Father Cardiac disorder Stroke Brother Testicular cancer Social History Smoking Status: Never smoker Tobacco Type: Smokeless Tobacco (Dip or Chew) Hx Alcohol Use: Yes Alcohol type: beer Alcohol type Comment: 2 drinks at time Alcohol Intake Frequency: 2-3 x/Week Hx Substance Use: No Current Living Situation: Alone current occupational status: employed 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 Physical Exam Physical Exam: CONSTITUTIONAL: WNWD, vitals as above, generally well-appearing, NAD EYES: normal conjunctivae, no scleral icterus ENT: external ear and nose normal, MMM NECK: trachea midline RESPIRATORY: clear to auscultation bilaterally, no crackles, rales or wheezes, normal respiratory effort CARDIOVASCULAR: regular rate and rhythm, S1 and 2 heard without murmurs, gallops or rubs, no JVD, no peripheral edema CHEST: inspection of chest was normal GASTROINTESTINAL: normal bowel sounds, soft, nontender, ND, no guarding MUSCULOSKELETAL: strength 5/5 throughout, head is normocephalic and atraumatic Lower extremities: right lower leg skin is stiff and tense and there is an increased warmth to the calf when compared to the left side. Distal RLE swelling >LLE SKIN: warm and dry NEUROLOGIC: CN 2-12 grossly intact, no sensory deficit, normal cognition, normal speech, no tremor PSYCHIATRIC: alert cooperative and oriented to person, place and time. Results & Data Results & Data Vital Signs (Past 12 Hours) Vital Signs Temp Pulse Pulse Resp BP BP Pulse Ox 09/08/22 11:30 92 H 19 09/08/22 11:01 104 H 20 09/08/22 10:34 15 09/08/22 10:00 94 H 21 09/08/22 10:00 148/88 H 09/08/22 09:00 87 19 09/08/22 09:00 150/91 H 09/08/22 08:30 91 H 21 09/08/22 08:09 94 H 22 96 09/08/22 09:00 87 20 150/91 H 94 09/08/22 10:00 94 H 21 148/88 H 95 09/08/22 08:20 92 H 09/08/22 08:02 93 H 18 164/105 H 96 09/08/22 07:49 37.2 C 100 H 20 175/95 H 95 O2 Del Method 09/08/22 11:30 09/08/22 11:01 09/08/22 10:34 09/08/22 10:00 09/08/22 10:00 09/08/22 09:00 09/08/22 09:00 09/08/22 08:30 09/08/22 08:09 09/08/22 09:00 Room Air 09/08/22 10:00 Room Air 09/08/22 08:20 09/08/22 08:02 Room Air 09/08/22 07:49 Room Air Laboratory Results Short CBC 09/08/22 Range/Units 08:40 WBC 7.14 (4.8-10.8) K/ul Hgb 14.9 (14.0-18.0) g/dl Hct 44.4 (42.0-52.0) % Plt Count 136 (130-400) K/uL BMP 09/08/22 08:40 Sodium 135 L Potassium 3.5 Chloride 99 Carbon Dioxide 26 BUN 8 Creatinine 0.65 Glucose 110 H Calcium 9.0 Liver Function 09/08/22 Range/Units 08:40 Total Bilirubin 0.9 (0.2-1.0) mg/dl AST 35 (13-39) U/L ALT 42 (7-52) U/L Alkaline Phosphatase 28 L (34-104) U/L Albumin 4.0 (3.4-5.0) gm/dl Urine 09/08/22 Range/Units 09:15 Urine Color [place] Urine Appearance Clear (Clear) Urine pH 7.0 (4.5-7.5) Ur Specific [place] 1.006 (1.000-1.030) Urine Protein Trace H (Negative) Urine Glucose (UA) Negative (Negative) Diagnostic Findings Chest X-Ray 09/08/22 08:16 SINGLE VIEW CHEST CLINICAL HISTORY: Cough and fever. Generalized weakness. FINDINGS: An AP, portable, upright chest radiograph is compared to study dated 07/27/2017. The examination is degraded by portable technique and apical lordotic positioning. The cardiomediastinal silhouette is unremarkable. There is mild elevation of the right hemidiaphragm and bibasilar atelectasis. The lungs and pleural spaces are otherwise clear. No pneumothorax is seen. The bony thorax is grossly intact. IMPRESSION: No active disease in the chest. ACT 112: Negative or not required by law. Electronically signed by: Mian Mccrary M.D. 09/08/2022 8:49 AM Venous Doppler Study 09/08/22 08:16 ULTRASOUND RIGHT LOWER EXTREMITY VENOUS CLINICAL HISTORY: Right leg pain and swelling. History of deep venous thrombosis. COMPARISON STUDY: No priors. TECHNIQUE: Real-time, grayscale, and color Doppler sonography of the deep veins of the right lower extremity was performed from the inguinal crease to the calf. Compression and augmentation were utilized. FINDINGS: There is extensive nearly occlusive to occlusive deep venous thrombosis seen throughout the right lower extremity. This extends from the common femoral vein, throughout the superficial femoral vein, and into the popliteal vein. Thrombus extends into the calf within branches of the posterior tibial and peroneal veins. The greater saphenous vein at the junction with the common femoral vein is clear. The left common femoral vein is patent. IMPRESSION: Extensive nearly occlusive to occlusive right lower extremity deep venous thrombosis as above. ACT 112: Negative or not required by law. Electronically signed by: Mian Mccrary M.D. 09/08/2022 9:50 AM Chest CTA 09/08/22 10:06 CT angio chest PE protocol CT DOSE: 454.39 mGycm HISTORY: 57 years-old Male with PE. Acute shortness of breath TECHNIQUE: Multiple CTA images of the chest were obtained after the intravenous administration of 111 ml Optiray. Coronal and sagittal MIPS were obtained from the axial data set and were submitted for review. All measurements were obtained according to NASCET criteria. A dose lowering technique was utilized adhering to the principles of ALARA. COMPARISON: Duplex venous Doppler study of same day FINDINGS: CTA: The heart is normal in size. Moderate coronary artery calcifications. There is no pericardial effusion. No thoracic aortic aneurysm. Bilateral lobar, segmental and subsegmental pulmonary emboli. No central pulmonary embolus. Mild straightening of the intraventricular septum. CT CHEST: Unremarkable thyroid. No lymphadenopathy. No pneumothorax, pleural effusion, airspace consolidation or pulmonary edema. No suspicious pulmonary nodules or masses identified. 4 mm subpleural solid nodule within the left lower lobe on image 110 series 4 is unchanged and benign. Central airways are patent. No acute process of the imaged upper abdomen. Hepatic steatosis. No acute fracture. Mild mid thoracic dextroscoliosis. Degenerative changes of the shoulders and spine. IMPRESSION: 1. Considerable amount of bilateral pulmonary emboli with findings suggestive of associated right heart strain. 2. No pleural effusion or airspace consolidation to suggest pulmonary infarct. ACT 112: Negative or not required by law. The above report was generated using voice recognition software. It may contain grammatical, syntax or spelling errors. Electronically signed by: Boaz Schneider M.D. 09/08/2022 10:59 AM Code Status & VTE Plan VTE Prophylaxis Plan VTE Prophylaxis will be ordered: Yes
[2022-09-08] MEDS ORDERED: POLYETHYLENE (MIRALAX) 17 GM PACK PO PRN (14:55)
[2022-09-08] MEDS ORDERED: ONDANSETRON INJ 2 MG/ML 2 ML VIAL IV PRN (14:55)
[2022-09-08] MEDS ORDERED: ACETAMINOPHEN 325 MG TAB PO PRN (14:55)
--- NOTE | 2022-09-08 15:16 | Pulmonary Consultation ---
Date of Consultation September 08, 2022 Assessment & Plan (1) Bilateral pulmonary embolism: (2) Chronic anticoagulation: (3) Acute deep vein thrombosis (DVT) of right lower extremity: (4) Atrial fibrillation: Plan CTA chest 09/08/2022 personally reviewed: Pulmonary emboli appreciated b ilaterally No pulmonary infiltrate No clear right heart strain appreciated No mediastinal lymphadenopathy -- Acute pulmonary emboli sPESI 0, 1.1% risk of mortality Continue with heparin drip -- Right lower extremity DVT This will be considered failure of Xarelto Would recommend transition to warfarin. -- History of DVT in the left lower extremity in the past which was provoked Plan: Follow-up 2D echo Patient saturating 97% on room air. Hemodynamically stable, no indication for thrombolysis right now, continue with heparin drip Patient would likely need lifelong anticoagulation. Would recommend h ypercoagulable work-up to be done as this is considered failure of Xarelto. Okay to feed the patient and start patient's home dose of metoprolol Hematology consult should be considered. All questions inquiries of the patient as well as patient's brother who was at bedside was answered. Case was discussed with RN at bedside Please note the above document was generated using voice recognition software. It may contain grammatical, syntax or spelling errors.Any formal questions or co ncerns about the content, text or information contained within the body of this dictation should be directly addressed to the provider for clarification. History of Present Illness Attending Physician: Melania Melissa, History of Present Illness 57-year-old male presented to the hospital with complaints of shortness of breath and lethargy Past medical history: A-fib on Xarelto, history of DVT on the left side s/p fracture in the past Pulmonary consulted as patient was found to have pulmonary emboli. At the time of examination patient was resting comfortably in the bed on heparin drip. He was saturating 97% on room air with heart rate of 110. Denies any chest pain, no chest pain, no headache, no nausea, no vomiting. Patient does have chronic history of dizziness which is positional. He did have multiple bouts of diarrhea in the last 7 days when he was comp laining of generalized lethargy and flulike symptoms. Denies any hematuria, no hematochezia, no epistaxis. Patient was compliant with Xarelto and has been taking it on a daily basis. No recent travel history. Patient did hit his right leg lately and he was not moving that much. No family history of any blood clots Social history: Lifetime non-smoker. 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 History of testicular cancer in one of the brothers Allergies Allergy/AdvReac Type Severity Reaction Status Date / Time Penicillins Allergy Unknown Verified 09/08/22 13:14 Home Medications Medication Instructions Recorded Confirmed Type metoprolol tartrate 50 mg tablet 50 mg PO BID #60 tabs 01/17/19 09/08/22 History rivaroxaban 20 mg tablet 20 mg PO DAILY #90 tabs 01/17/19 09/08/22 History simvastatin 40 mg tablet 40 mg PO DAILY #90 tabs 01/17/19 09/08/22 History B-complex with vitamin C 1 cap PO DAILY 09/08/22 09/08/22 History Patient History Medical History Anticoagulant long-term use Ataxia Atrial fibrillation Bilateral pulmonary embolism Degenerative cervical spinal stenosis DVT (deep venous thrombosis) Hypercholesterolemia Leg weakness, bilateral Muscle weakness (generalized) 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 Panic disorder Rupture of left biceps tendon Tobacco use Surgical History H/O medial meniscus repair of right knee Family History Father Cardiac disorder Stroke Brother Testicular cancer Social History Smoking Status: Former smoker Tobacco Type: Smokeless Tobacco (Dip or Chew) Do You Dip or Chew Tobacco: Yes; Hx Alcohol Use: Yes Alcohol type: beer Alcohol type Comment: 2 drinks at time Alcohol Intake Frequency: 2-3 x/Week Hx Substance Use: No Preferred Language: Samoan 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 [employer] 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 Required: No Beliefs That Will Affect Care: None Current Living Situation: Alone current occupational status: employed 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 [employer] Feels Safe at Home: Yes Safety Concerns: Feels Safe At This Time Review of Systems Review of Systems: All systems reviewed & are unremarkable except as noted in HPI & below Physical Exam Physical Exam: Constitutional: No acute distress HEENT: EOMI, PERRLA Respiratory system: Good air entry bilaterally, no wheeze, no rhonchi, no crackles CVS: S1-S2 positive, no murmurs or gallops Abdomen: Soft, nontender, nondistended, positive bowel sounds x4 Extremities: +2 pulses bilaterally radialis/ dorsalis pedis, no cyanosis, + pitting edema right lower extremity Neuro: Awake alert oriented x3 Psych: Normal mood and affect G/U: No Huff Skin: no rashes, warm and dry Lymphatic: no cervical or axillary lymphadenopathy Results & Data Results & Data Vital Signs (Past 12 Hours) Vital Signs Temp Pulse Pulse Resp BP BP Pulse Ox 09/08/22 14:00 99 H 15 156/92 H 94 09/08/22 13:00 103 H 19 152/93 H 94 09/08/22 12:00 95 H 22 180/103 H 93 09/08/22 11:30 92 H 19 09/08/22 11:01 104 H 20 09/08/22 10:34 15 09/08/22 10:00 94 H 21 09/08/22 10:00 148/88 H 09/08/22 09:00 87 19 09/08/22 09:00 150/91 H 09/08/22 08:30 91 H 21 09/08/22 08:09 94 H 22 96 09/08/22 09:00 87 20 150/91 H 94 09/08/22 10:00 94 H 21 148/88 H 95 09/08/22 08:20 92 H 09/08/22 08:02 93 H 18 164/105 H 96 09/08/22 07:49 37.2 C 100 H 20 175/95 H 95 O2 Del Method 09/08/22 14:00 Room Air 09/08/22 13:00 Room Air 09/08/22 12:00 Room Air 09/08/22 11:30 09/08/22 11:01 09/08/22 10:34 09/08/22 10:00 09/08/22 10:00 09/08/22 09:00 09/08/22 09:00 09/08/22 08:30 09/08/22 08:09 09/08/22 09:00 Room Air 09/08/22 10:00 Room Air 09/08/22 08:20 09/08/22 08:02 Room Air 09/08/22 07:49 Room Air Laboratory Results 09/08/22 08:40 09/08/22 08:40 PG Care Time/CCT Total # of Minutes Spent Total Time Spent with Patient: Total time spent is greater than 50% in coordination of care (as documented) at patient's floor/unit and/or counseling patient: Coding Level of Care Code 28014 INT INP/OBS CARE 3/75MIN Diagnoses Bilateral pulmonary embolism I26.99 Chronic anticoagulation Z79.01 Acute deep vein thrombosis (DVT) of right lower extremity I82.401 Atrial fibrillation I48.91
[2022-09-08] MEDS ORDERED: LABETALOL HCL IV 5 MG/ML 20ML IV STA (17:37)
[2022-09-08 18:41] LABS: Partial Thromboplastin Ratio 2.6
[2022-09-08 18:49] LABS: Partial Thromboplastin Time 71.4 Seconds (21.0-31.0)
[2022-09-08] MEDS: METOPROLOL TARTRATE 50 MG TAB PO SCH (20:29)
[2022-09-09 01:49] LABS: Partial Thromboplastin Ratio 2.1
[2022-09-09 02:02] LABS: Partial Thromboplastin Time 57.8 Seconds (21.0-31.0)
[2022-09-09 06:43] LABS: BUN Creatinine Ratio 11.7 (10-20); Calcium 8.7 mg/dl (8.5-10.1); Creatinine Clr Calc Pharmacy 134.2 ml/min; Est GFR (African American) 128.5 ml/min; Est GFR (Non-African American) 110.8 ml/min; Hematocrit (blood only) 44.2 % (42.0-52.0); Hemoglobin 14.7 g/dl (14.0-18.0); Mean Corpuscular Hgb Conc 33.3 g/dL (32.0-36.0); Mean Corpuscular Volume 96.3 fL (80.0-100.0); Mean Platelet Volume 9.3 fL (9.4-12.4); Platelet Count 125 K/uL (130-400); Potassium 3.6 mmol/L (3.5-5.1); RDW Coefficient of Variation 13.1 % (11.5-14.5); RDW Standard Deviation 46.4 fL (36.4-46.3); Red Blood Count 4.59 M/uL (4.70-6.10); White Blood Count 5.61 K/ul (4.8-10.8)
[2022-09-09] MEDS: HEPARIN SODIUM/DEXTROSE 25,000 UNITS/500 ML BAG IV SCH (07:05)
[2022-09-09 07:25] LABS: Partial Thromboplastin Time 53.9 Seconds (21.0-31.0)
[2022-09-09] MEDS: SIMVASTATIN 40 MG TAB PO SCH (08:45)
[2022-09-09] MEDS: METOPROLOL TARTRATE 50 MG TAB PO SCH ×2 (10:10→20:30)
--- NOTE | 2022-09-09 12:30 | Pulmonology Progress Note ---
Date of Service September 09, 2022 Assessment & Plan (1) Bilateral pulmonary embolism: (2) Chronic anticoagulation: (3) Acute deep vein thrombosis (DVT) of right lower extremity: (4) Atrial fibrillation: Plan CTA chest 09/08/2022 personally reviewed: Pulmonary emboli appreciated shannan aterally No pulmonary infiltrate No clear right heart strain appreciated No mediastinal lymphadenopathy -- Acute pulmonary emboli sPESI 0, 1.1% risk of mortality Troponin 2.6 BNP 32 Continue with heparin drip -- Right lower extremity DVT This will be considered failure of Xarelto Would recommend transition to warfarin. -- History of DVT in the left lower extremity in the past which was provoked Plan: Follow-up 2D echo Continue with heparin drip Patient would likely need lifelong anticoagulation. Would recommend hypercoagulable work-up to be done as this is considered failure of Xarelto. Okay to feed the patient and start patient's home dose of metoprolol Hematology consult is pending Case was discussed with Dr Crain Please note the above document was generated using voice recognition software. It may contain grammatical, syntax or spelling errors.Any formal questions or concerns about the content, text or information contained within the body of this dictation should be directly addressed to the provider for clarification. Admission and Anticipated Discharge Date Admission Date: September 08, 2022 Subjective Patient seen and examined at bedside. No acute distress, no adverse events overnight. Patient is feeling better. Denies any chest pain, no cough No shortness of breath Fair appetite No dysuria, no diarrhea, no hematuria, no hematochezia, no epistaxis Review of Systems Review of Systems: All systems reviewed & are unremarkable except as noted in Subjective Physical Exam Physical Exam: Constitutional: No acute distress HEENT: EOMI, PERRLA Respiratory system: Good air entry bilaterally, no wheeze, no rhonchi, no crackles CVS: S1-S2 positive, no murmurs or gallops Abdomen: Soft, nontender, nondistended, positive bowel sounds x4 Extremities: +2 pulses bilaterally radialis/ dorsalis pedis, no cyanosis, +1 pitting edema right lower extremity Neuro: Awake alert oriented x3 Psych: Normal mood and affect G/U: No Huff Skin: no rashes, warm and dry Lymphatic: no cervical or axillary lymphadenopathy Results & Data Results & Data Vital Signs (Past 12 Hours) Vital Signs Temp Pulse Pulse Resp BP BP Pulse Ox 09/09/22 06:24 83 09/09/22 09:00 09/09/22 11:20 37.4 C 89 21 142/88 H 94 09/09/22 10:16 15 09/09/22 08:28 157/95 H 09/09/22 08:28 172/102 H 09/09/22 07:52 37.2 C 92 H 21 98/83 L 93 09/09/22 03:14 37.4 C 89 16 155/90 H 93 O2 Del Method 09/09/22 06:24 09/09/22 09:00 Room Air 09/09/22 11:20 Room Air 09/09/22 10:16 09/09/22 08:28 09/09/22 08:28 09/09/22 07:52 Room Air 09/09/22 03:14 Room Air Laboratory Results 09/09/22 05:53 09/09/22 05:53 PG Care Time/CCT Total # of Minutes Spent Total Time Spent with Patient: Total time spent is greater than 50% in coordination of care (as documented) at patient's floor/unit and/or counseling patient: Coding Level of Care Code 41666 SUB INP/OBS CARE 3/50MIN Diagnoses Bilateral pulmonary embolism I26.99 Chronic anticoagulation Z79.01 Acute deep vein thrombosis (DVT) of right lower extremity I82.401 Atrial fibrillation I48.91
--- NOTE | 2022-09-09 13:39 | Oncology Consultation ---
Date of Consultation September 09, 2022 Assessment & Plan (1) Bilateral pulmonary embolism: (2) Acute deep vein thrombosis (DVT) of right lower extremity: Plan Pleasant 57-year-old gentleman who presented with right lower extremity leg swelling and was found to have significant right lower extremity DVT and bilateral PEs with right heart strain. Of note, he had been on chronic anticoagulation with Xarelto due to atrial fibrillation and endorses compliance with Xarelto -Given anticoagulation failure with Xarelto, options for treatment include chronic anticoagulation with therapeutic low molecular weight heparin(Lovenox), or warfarin. Would not recommend Eliquis given Xarelto failure as well as significant clot burden. At this time, agree with unfractionated heparin. -Given significant clot burden,would ideally recommend initial anticoagulation with low molecular weight heparin for at least 1 month prior to transitioning to warfarin. However, patient was not very comfortable with this option. Therefore would be reasonable to continue unfractionated heparin IV or switch to weight-based Lovenox 1 mg/kg twice daily. Warfarin can be started tomorrow at 7.5mg po daily if he has no new symptoms of worsening DVT/PE. After starting warfarin, he will need to remain on Heparin/Lovenox x 5 days until INR is within therapeutic range of 2-3. He can follow-up with Coumadin clinic for warfarin management upon discharge from hospital -Recommend obtaining CT abdomen and pelvis to rule out underlying malignancy given unprovoked VTE. He will also need age appropriate screening with colonoscopy as an outpatient -Would not recommend hypercoagulable work-up at the time of acute thrombotic events. I will plan to obtain hypercoagulable work-up when I see him as an outpatient Thank you for this consult. Hematology will follow up with patient upon discharge from hospital. Please feel free to call if you have any further questions History of Present Illness Reason for Consultation: DVT/PE Attending Physician: Arthur Crain MD History of Present Illness Mr. Ferreira is a 57-year-old gentleman with history of atrial fibrillation on chronic anticoagulation with Xarelto who presented with right lower extremity swelling and pain. Right lower extremity ultrasound revealed extensive nearly occlusive to occlusive right lower extremity DVT. CTA chest on 09/08/2022 revealed considerable amount of bilateral PE with findings suggestive of associated right heart strain. He states that he was diagnosed with right lower extremity DVT around 2019 after fracture and states that he was on Xarelto at that time. He states that prior to DVT diagnosis, he had flulike symptoms. He endorses shortness of breath with exertion. Denies chest pain, nausea, vomiting, weight loss, bone pain or any other issues. He has never had a colonoscopy Allergies Allergy/AdvReac Type Severity Reaction Status Date / Time Penicillins Allergy Unknown Verified 09/08/22 13:14 Home Medications Medication Instructions Recorded Confirmed Type metoprolol tartrate 50 mg tablet 50 mg PO BID #60 tabs 01/17/19 09/08/22 History rivaroxaban 20 mg tablet 20 mg PO DAILY #90 tabs 01/17/19 09/08/22 History simvastatin 40 mg tablet 40 mg PO DAILY #90 tabs 01/17/19 09/08/22 History B-complex with vitamin C 1 cap PO DAILY 09/08/22 09/08/22 History Patient History Medical History Anticoagulant long-term use Ataxia Atrial fibrillation Bilateral pulmonary embolism Degenerative cervical spinal stenosis DVT (deep venous thrombosis) Hypercholesterolemia Leg weakness, bilateral Muscle weakness (generalized) 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 Panic disorder Rupture of left biceps tendon Tobacco use Surgical History H/O medial meniscus repair of right knee Family History Father Cardiac disorder Stroke Brother Testicular cancer Social History Smoking Status: Former smoker Tobacco Type: Smokeless Tobacco (Dip or Chew) Do You Dip or Chew Tobacco: Yes; Hx Alcohol Use: Yes Alcohol type: beer Alcohol type Comment: 2 drinks at time Alcohol Intake Frequency: 2-3 x/Week Hx Substance Use: No Preferred Language: Palestinian Communication Ability: Effective Medication Reconciliation Technician Required: No Beliefs That Will Affect Care: None Current Living Situation: Alone current occupational status: employed 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 Feels Safe at Home: Yes Safety Concerns: Feels Safe At This Time Assistive Devices: None Review of Systems Review of Systems: All systems reviewed & are unremarkable except as noted in HPI & below Results & Data Vital Signs (Past 12 Hours) Vital Signs Temp Pulse Pulse Resp BP BP Pulse Ox 09/09/22 06:24 83 09/09/22 09:00 09/09/22 11:20 37.4 C 89 21 142/88 H 94 09/09/22 10:16 15 09/09/22 08:28 157/95 H 09/09/22 08:28 172/102 H 09/09/22 07:52 37.2 C 92 H 21 98/83 L 93 09/09/22 03:14 37.4 C 89 16 155/90 H 93 O2 Del Method 09/09/22 06:24 09/09/22 09:00 Room Air 09/09/22 11:20 Room Air 09/09/22 10:16 09/09/22 08:28 09/09/22 08:28 09/09/22 07:52 Room Air 09/09/22 03:14 Room Air
--- NOTE | 2022-09-09 14:40 | Hospitalist Progress Note ---
Date of Service September 09, 2022 Assessment & Plan (1) Bilateral pulmonary embolism: Plan: (2) Acute deep vein thrombosis (DVT) of right lower extremity: (3) Chronic anticoagulation: Plan: Patient presented with severe leg pain; not being able to walk. He has history of atrial fibrillation on Xarelto. Reports compliance with the anticoagulation; takes with dinner at night. CTA chest was done which showed bilateral PE. Venous duplex showed right lower extremity DVT. Pulmonology and hematology on board. Currently on heparin drip; continue. Echo pending. (4) Atrial fibrillation: Plan: paroxysmal, currently in sinus rhythm. Continues on metoprolol per home regimen, and anticoagulation with heparin. (5) Hyperlipidemia: Plan: On simvastatin Plan DVT proph: heparin, TEDs Full Code Dispo-to PCU Admission and Anticipated Discharge Date Admission Date: September 08, 2022 Subjective Patient seen and examined at bedside. He is lying on the bed comfortably; no complaint of shortness of breath, chest pain or dizziness. He continues to saturate well in room air. Physical Exam Physical Exam: Constitutional: WD/WN, vitals as above, NAD, sitting up in bed, pleasant, conversing easily Respiratory: normal respiratory effort, lungs clear to auscultation, no wheeze, rales, rhonchi. Normal insp/exp effort, no accessory muscle use Cardiovascular: RRR, no murmur, no edema Vessels: no JVD or carotid bruit Chest: normal inspection of chest Abdomen: normal bowel sounds, soft, nontender, no hepatosplenomegaly Musculoskeletal: Right lower extremity slightly swollen; no overlying skin changes. Skin: no rashes, warm and dry normal turgor Neurologic: PERRL, EOMI, accommodation nl, no face palsy, no dysarthria CN's II- XI intact bilaterally and moves all extremities Psychiatric: A+Ox3, euthymic affect Lymphatic: no cervical or axillary lymphadenopathy : deferred Results & Data Results & Data Vital Signs (Past 12 Hours) Vital Signs Temp Pulse Pulse Resp BP BP Pulse Ox 09/09/22 06:24 83 09/09/22 09:00 09/09/22 11:20 37.4 C 89 21 142/88 H 94 09/09/22 10:16 15 09/09/22 08:28 157/95 H 09/09/22 08:28 172/102 H 09/09/22 07:52 37.2 C 92 H 21 98/83 L 93 09/09/22 03:14 37.4 C 89 16 155/90 H 93 O2 Del Method 09/09/22 06:24 09/09/22 09:00 Room Air 09/09/22 11:20 Room Air 09/09/22 10:16 09/09/22 08:28 09/09/22 08:28 09/09/22 07:52 Room Air 09/09/22 03:14 Room Air Laboratory Results Laboratory Results WBC 5.61 K/ul (4.8-10.8) 09/09/22 05:53 RBC 4.59 M/uL (4.70-6.10) L 09/09/22 05:53 Hgb 14.7 g/dl (14.0-18.0) 09/09/22 05:53 Hct 44.2 % (42.0-52.0) 09/09/22 05:53 MCV 96.3 fL (80.0-100.0) 09/09/22 05:53 MCH 32.0 pg (25.0-34.0) 09/09/22 05:53 MCHC 33.3 g/dL (32.0-36.0) 09/09/22 05:53 RDW Std Deviation 46.4 fL (36.4-46.3) H 09/09/22 05:53 RDW Coeff of Jacquelyn 13.1 % (11.5-14.5) 09/09/22 05:53 Plt Count 125 K/uL (130-400) L 09/09/22 05:53 MPV 9.3 fL (9.4-12.4) L 09/09/22 05:53 Immature Gran % (Auto) 0.1 % 09/08/22 08:40 Neut % (Auto) 75.9 % 09/08/22 08:40 Lymph % (Auto) 12.9 % 09/08/22 08:40 [place] % (Auto) 9.8 % 09/08/22 08:40 Eos % (Auto) 0.6 % 09/08/22 08:40 Baso % (Auto) 0.7 % 09/08/22 08:40 Neut # (Auto) 5.42 K/uL (1.40-6.50) 09/08/22 08:40 Lymph # (Auto) 0.92 K/uL (1.2-3.4) L 09/08/22 08:40 [place] # (Auto) 0.70 K/uL (0.11-0.59) H 09/08/22 08:40 Eos # (Auto) 0.04 K/uL (0-0.50) 09/08/22 08:40 Baso # (Auto) 0.05 K/uL (0-0.2) 09/08/22 08:40 Immature Gran # (Auto) 0.01 K/uL (0.01-0.20) 09/08/22 08:40 PT 10.7 Seconds (9.0-12.0) 09/08/22 08:40 INR 1.0 (0.9-1.1) 09/08/22 08:40 APTT 53.9 Seconds (21.0-31.0) H* 09/09/22 05:53 PTT Ratio 2.0 09/09/22 05:53 Sodium 137 mmol/L (136-145) 09/09/22 05:53 Potassium 3.6 mmol/L (3.5-5.1) 09/09/22 05:53 Chloride 102 mmol/L (98-107) 09/09/22 05:53 Carbon Dioxide 29 mmol/L (21-32) 09/09/22 05:53 Anion Gap 6 (3-11) 09/09/22 05:53 BUN 7 mg/dl (6-23) 09/09/22 05:53 Creatinine 0.60 mg/dl (0.6-1.4) 09/09/22 05:53 Est Cr Clr Drug Dosing 134.2 ml/min 09/09/22 05:53 Est GFR ( Amer) 128.5 ml/min 09/09/22 05:53 Est GFR (Non-Af Amer) 110.8 ml/min 09/09/22 05:53 BUN/Creatinine Ratio 11.7 (10-20) 09/09/22 05:53 Glucose 118 mg/dl (70-99(Fasting)) H 09/09/22 05:53 Calcium 8.7 mg/dl (8.5-10.1) 09/09/22 05:53 Total Bilirubin 0.9 mg/dl (0.2-1.0) 09/08/22 08:40 AST 35 U/L (13-39) 09/08/22 08:40 ALT 42 U/L (7-52) 09/08/22 08:40 Alkaline Phosphatase 28 U/L (34-104) L 09/08/22 08:40 Troponin I High Sens 2.6 pg/ml (0-20) 09/09/22 07:28 B-Natriuretic Peptide 32 pg/ml (0-100) 09/09/22 07:28 Total Protein 7.0 gm/dl (6.0-8.3) 09/08/22 08:40 Albumin 4.0 gm/dl (3.4-5.0) 09/08/22 08:40 Globulin 3.0 gm/dl (2.5-4.0) 09/08/22 08:40 Albumin/Globulin Ratio 1.3 (0.9-2) 09/08/22 08:40 Urine Color [place] 09/08/22 09:15 Urine Appearance Clear (Clear) 09/08/22 09:15 Urine pH 7.0 (4.5-7.5) 09/08/22 09:15 Ur Specific [place] 1.006 (1.000-1.030) 09/08/22 09:15 Urine Protein Trace (Negative) H 09/08/22 09:15 Urine Glucose (UA) Negative (Negative) 09/08/22 09:15 Urine Ketones 1+ (Negative) H 09/08/22 09:15 Urine Blood Negative (Negative) 09/08/22 09:15 Urine Nitrite Negative (Negative) 09/08/22 09:15 Urine Bilirubin Negative (Negative) 09/08/22 09:15 Urine Urobilinogen Negative (Negative) 09/08/22 09:15 Ur Leukocyte Esterase Negative (Negative) 09/08/22 09:15 Urine WBC (Auto) 0 /hpf (0-5) 09/08/22 09:15 Urine RBC (Auto) 0-4 /hpf (0-4) 09/08/22 09:15 U Hyaline Cast (Auto) 0 /lpf (0-5) 09/08/22 09:15 U Epithel Cells (Auto) 0-5 /lpf (0-5) 09/08/22 09:15 Urine Bacteria (Auto) Negative (Negative) 09/08/22 09:15 Adenovirus (PCR) Not Detected (NotDetected) 09/08/22 08:40 B. pertussis DNA (PCR) Not Detected (NotDetected) 09/08/22 08:40 B.parapertussis DNA PCR Not Detected (NotDetected) 09/08/22 08:40 C. pneumoniae DNA (PCR) Not Detected (NotDetected) 09/08/22 08:40 Coronavirus OC43 (PCR) Not Detected (NotDetected) 09/08/22 08:40 Coronavirus HKU1 (PCR) Not Detected (NotDetected) 09/08/22 08:40 Coronavirus 229E (PCR) Not Detected (NotDetected) 09/08/22 08:40 SARS-CoV-2 (PCR) Not Detected (NotDetected) 09/08/22 08:40 Coronavirus NL63 (PCR) Not Detected (NotDetected) 09/08/22 08:40 Human Metapneumovir PCR Not Detected (NotDetected) 09/08/22 08:40 Influenza Type A (PCR) Not Detected (NotDetected) 09/08/22 08:40 Influenza Type B (PCR) Not Detected (NotDetected) 09/08/22 08:40 M. pneumoniae (PCR) Not Detected (NotDetected) 09/08/22 08:40 Parainfluenza 1 (PCR) Not Detected (NotDetected) 09/08/22 08:40 Parainfluenza 2 (PCR) Not Detected (NotDetected) 09/08/22 08:40 Parainfluenza 3 (PCR) Not Detected (NotDetected) 09/08/22 08:40 Parainfluenza 4 (PCR) Not Detected (NotDetected) 09/08/22 08:40 RSV (PCR) Not Detected (NotDetected) 09/08/22 08:40 Entero/Rhino (PCR) Not Detected (NotDetected) 09/08/22 08:40 Impressions Chest X-Ray 09/08/22 08:16 SINGLE VIEW CHEST CLINICAL HISTORY: Cough and fever. Generalized weakness. FINDINGS: An AP, portable, upright chest radiograph is compared to study dated 07/27/2017. The examination is degraded by portable technique and apical lordotic positioning. The cardiomediastinal silhouette is unremarkable. There is mild elevation of the right hemidiaphragm and bibasilar atelectasis. The lungs and pleural spaces are otherwise clear. No pneumothorax is seen. The bony thorax is grossly intact. IMPRESSION: No active disease in the chest. ACT 112: Negative or not required by law. Electronically signed by: Mian Mccrary M.D. 09/08/2022 8:49 AM Venous Doppler Study 09/08/22 08:16 ULTRASOUND RIGHT LOWER EXTREMITY VENOUS CLINICAL HISTORY: Right leg pain and swelling. History of deep venous thrombosis. COMPARISON STUDY: No priors. TECHNIQUE: Real-time, grayscale, and color Doppler sonography of the deep veins of the right lower extremity was performed from the inguinal crease to the calf. Compression and augmentation were utilized. FINDINGS: There is extensive nearly occlusive to occlusive deep venous thrombosis seen throughout the right lower extremity. This extends from the common femoral vein, throughout the superficial femoral vein, and into the popliteal vein. Thrombus extends into the calf within branches of the posterior tibial and peroneal veins. The greater saphenous vein at the junction with the common femoral vein is clear. The left common femoral vein is patent. IMPRESSION: Extensive nearly occlusive to occlusive right lower extremity deep venous thrombosis as above. ACT 112: Negative or not required by law. Electronically signed by: Mian Mccrary M.D. 09/08/2022 9:50 AM Chest CTA 09/08/22 10:06 CT angio chest PE protocol CT DOSE: 454.39 mGycm HISTORY: 57 years-old Male with PE. Acute shortness of breath TECHNIQUE: Multiple CTA images of the chest were obtained after the intravenous administration of 111 ml Optiray. Coronal and sagittal MIPS were obtained from the axial data set and were submitted for review. All measurements were obtained according to NASCET criteria. A dose lowering technique was utilized adhering to the principles of ALARA. COMPARISON: Duplex venous Doppler study of same day FINDINGS: CTA: The heart is normal in size. Moderate coronary artery calcifications. There is no pericardial effusion. No thoracic aortic aneurysm. Bilateral lobar, segmental and subsegmental pulmonary emboli. No central pulmonary embolus. Mild straightening of the intraventricular septum. CT CHEST: Unremarkable thyroid. No lymphadenopathy. No pneumothorax, pleural effusion, airspace consolidation or pulmonary edema. No suspicious pulmonary nodules or masses identified. 4 mm subpleural solid nodule within the left lower lobe on image 110 series 4 is unchanged and benign. Central airways are patent. No acute process of the imaged upper abdomen. Hepatic steatosis. No acute fracture. Mild mid thoracic dextroscoliosis. Degenerative changes of the shoulders and spine. IMPRESSION: 1. Considerable amount of bilateral pulmonary emboli with findings suggestive of associated right heart strain. 2. No pleural effusion or airspace consolidation to suggest pulmonary infarct. ACT 112: Negative or not required by law. The above report was generated using voice recognition software. It may contain grammatical, syntax or spelling errors. Electronically signed by: Boaz Schneider M.D. 09/08/2022 10:59 AM
[2022-09-09] MEDS ORDERED: ENOXAPARIN 1 MG/KG SC SCH (17:30)
[2022-09-09] MEDS ORDERED: HEPARIN STOP ORDER ONE (17:45)
[2022-09-09] MEDS: ENOXAPARIN 80 MG/0.8 ML SYR SQ SCH (19:17)
--- NOTE | 2022-09-09 21:33 | CT Scan Report ---
Exam(s): CT ABDOMEN + PELVIS Without Contrast EXAM: CT Abdomen and Pelvis Without Intravenous Contrast CLINICAL HISTORY: Reason for exam: PE/DVT, rule out occult malignancy. TECHNIQUE: Axial computed tomography images of the abdomen and pelvis without intravenous contrast. CTDI is 6.55 mGy and DLP is 341.51 mGy-cm. Automated exposure control was utilized for the study. A dose lowering technique was utilized adhering to the principles of ALARA. COMPARISON: None. FINDINGS: Lung bases: Trace bilateral lower lobe subpleural atelectasis, otherwise clear lung bases. Heart: Unremarkable. No significant pericardial effusion. Normal cardiac size. ABDOMEN: Liver: Scattered areas of fatty infiltration throughout the liver, difficult to exclude liver lesions. Gallbladder and bile ducts: Contracted gallbladder. No calcified stones. No ductal dilation. Pancreas: Unremarkable. No ductal dilation. Spleen: Unremarkable. No splenomegaly. Adrenals: Unremarkable. No mass. Kidneys and ureters: Mild bilateral perinephric stranding. Otherwise unremarkable bilateral kidneys. No obstructing stones. No hydronephrosis. Stomach and bowel: Unremarkable. No obstruction. No mucosal thickening. PELVIS: Appendix: No findings to suggest acute appendicitis. Bladder: Thickening of urinary bladder wall concerning for cystitis. No stones. Reproductive: Unremarkable as visualized. ABDOMEN and PELVIS: Intraperitoneal space: Unremarkable. No free air. No significant fluid collection. Bones/joints: Degenerative disease of the spine. No acute fracture. No dislocation. Soft tissues: Unremarkable. Vasculature: Mild atherosclerotic disease of the distal abdominal aorta with no aneurysm. Lymph nodes: Unremarkable. No enlarged lymph nodes. IMPRESSION: 1. Diffuse fatty liver, difficult to exclude liver lesions. If indicated, this may be further evaluated with CT of the upper abdomen with intravenous contrast, three-phase protocol. Remainder of abdominal viscera unremarkable. 2. No bowel obstruction or acute process throughout the gastrointestinal tract. 3. Thickening of urinary bladder wall, cannot exclude cystitis. If this represents a clinical concern, recommend follow-up with urinalysis. Electronically signed by: Sayra George MD 09/09/22 21:32 PM
[2022-09-10] MEDS: ENOXAPARIN 80 MG/0.8 ML SYR SQ SCH ×2 (05:17→16:58)
[2022-09-10 06:11] LABS: Basophils # (auto) 0.04 K/uL (0-0.2); Basophils % (auto) 0.8 %; Eosinophils # (auto) 0.09 K/uL (0-0.50); Eosinophils % (auto) 1.7 %; Hematocrit (blood only) 44.8 % (42.0-52.0); Immature Granulocytes # (auto) 0.02 K/uL (0.01-0.20); Immature Granulocytes % (auto) 0.4 %; Lymphocytes # (auto) 0.75 K/uL (1.2-3.4); Lymphocytes % (auto) 14.1 %; Mean Corpuscular Hemoglobin 31.9 pg (25.0-34.0); Mean Corpuscular Hgb Conc 33.5 g/dL (32.0-36.0); Mean Corpuscular Volume 95.3 fL (80.0-100.0); Mean Platelet Volume 8.8 fL (9.4-12.4); Monocytes # (auto) 0.73 K/uL (0.11-0.59); Monocytes % (auto) 13.7 %; Neutrophils # (auto) 3.69 K/uL (1.40-6.50); Neutrophils % (auto) 69.3 %; Platelet Count 140 K/uL (130-400); RDW Coefficient of Variation 12.8 % (11.5-14.5); RDW Standard Deviation 45.7 fL (36.4-46.3); White Blood Count 5.32 K/ul (4.8-10.8)
[2022-09-10 06:30] LABS: Partial Thromboplastin Ratio 1.2; Partial Thromboplastin Time 32.2 Seconds (21.0-31.0)
[2022-09-10] MEDS: METOPROLOL TARTRATE 50 MG TAB PO SCH ×2 (09:02→21:17)
[2022-09-10] MEDS: SIMVASTATIN 40 MG TAB PO SCH (09:02)
[2022-09-10 09:25] LABS: Prothrombin Time 10.9 Seconds (9.0-12.0)
--- NOTE | 2022-09-10 12:57 | Pulmonology Progress Note ---
Date of Service September 10, 2022 Assessment & Plan (1) Bilateral pulmonary embolism: (2) Chronic anticoagulation: (3) Acute deep vein thrombosis (DVT) of right lower extremity: (4) Atrial fibrillation: Plan CTA chest 09/08/2022 personally reviewed: Pulmonary emboli appreciated shannan aterally No pulmonary infiltrate No clear right heart strain appreciated No mediastinal lymphadenopathy -- Acute pulmonary emboli sPESI 0, 1.1% risk of mortality Troponin 2.6 BNP 32 Continue with heparin drip -- Right lower extremity DVT This will be considered failure of Xarelto Would recommend transition to warfarin. -- History of DVT in the left lower extremity in the past which was provoked Plan: 2D echo still pending Continue with Lovenox For the epistatic which the patient was complaining of, saline nasal spray ordered Hematology consult reviewed Case was discussed with Dr. Isidro No further recommendation from pulmonary perspective, will sign off. Please call directly with any questions Please note the above document was generated using voice recognition software. It may contain grammatical, syntax or spelling errors.Any formal questions or concerns about the content, text or information contained within the body of this dictation should be directly addressed to the provider for clarification. Admission and Anticipated Discharge Date Admission Date: September 08, 2022 Subjective Patient seen and examined at bedside. No acute distress, no adverse events overnight. Overall patient says that he is doing okay. Mild nausea no vomiting. No chest pain, no shortness of breath He was saturating 97% on room air at the time of examination Denies any headache, no blurry vision Review of Systems Review of Systems: All systems reviewed & are unremarkable except as noted in Subjective Physical Exam Physical Exam: Constitutional: No acute distress HEENT: EOMI, PERRLA Respiratory system: Good air entry bilaterally, no wheeze, no rhonchi, no crackles CVS: S1-S2 positive, no murmurs or gallops Abdomen: Soft, nontender, nondistended, positive bowel sounds x4 Extremities: +2 pulses bilaterally radialis/ dorsalis pedis, no cyanosis, +1 p itting edema right lower extremity Neuro: Awake alert oriented x3 Psych: Normal mood and affect G/U: No Huff Skin: no rashes, warm and dry Lymphatic: no cervical or axillary lymphadenopathy Results & Data Results & Data Vital Signs (Past 12 Hours) Vital Signs Temp Pulse Pulse Resp BP BP Pulse Ox 03/22/23 12:00 36.6 C 81 18 137/85 96 09/10/22 08:00 88 09/10/22 08:00 36.8 C 98 H 18 131/89 95 09/10/22 03:52 37.0 C 97 H 18 145/94 H 94 O2 Del Method 09/10/22 12:00 Room Air 09/10/22 08:00 09/10/22 08:00 Room Air 09/10/22 03:52 Room Air Laboratory Results 09/10/22 05:39 09/09/22 05:53 PG Care Time/CCT Total # of Minutes Spent Total Time Spent with Patient: Total time spent is greater than 50% in coordination of care (as documented) at patient's floor/unit and/or counseling patient: Coding Level of Care Code 92312 SUB INP/OBS CARE 2/35MIN Diagnoses Bilateral pulmonary embolism I26.99 Chronic anticoagulation Z79.01 Acute deep vein thrombosis (DVT) of right lower extremity I82.401 Atrial fibrillation I48.91
[2022-09-10] MEDS ORDERED: SODIUM CHLORIDE 0.65% NA SOLN 45 ML (OCEAN) PRN (14:35)
[2022-09-10] MEDS: WARFARIN SOD 7.5 MG TAB PO SCH (16:58)
--- NOTE | 2022-09-10 17:39 | Hospitalist Progress Note ---
Date of Service September 10, 2022 Assessment & Plan (1) Bilateral pulmonary embolism: Plan: (2) Acute deep vein thrombosis (DVT) of right lower extremity: (3) Chronic anticoagulation: Plan: Per Dr. Maximus Sutherland's notes with addendum: Patient presented with severe leg pain; not being able to walk. He has history of atrial fibrillation on Xarelto. Reports compliance with the anticoagulation; takes with dinner at night. CTA chest was done which showed bilateral PE. Venous duplex showed right lower extremity DVT. Pulmonology and hematology on board. Currently on heparin drip; continue. Echo pending. 09/10 Transitioned to Lovenox plus Coumadin Repeat INR tomorrow Discussed with Dr. Hernández Plan to discharge on Coumadin with Lovenox bridge, repeat INR Thursday Echocardiogram still pending (4) Atrial fibrillation: Plan: paroxysmal, currently in sinus rhythm. Continues on metoprolol per home regimen, and anticoagulation with heparin. (5) Hyperlipidemia: Plan: On simvastatin Plan DVT proph: heparin, TEDs Full Code Dispo-anticipate discharge to home tomorrow Admission and Anticipated Discharge Date Admission Date: September 08, 2022 Subjective Follow-up for acute bilateral PE, DVT, etc. Seen resting in bed, comfortable, not in distress States he feels fine overall Feels that he is improving overall Easily tires No chest pain, palpitations, dizziness No other symptoms Review of Systems Review of Systems: all noted and negative except for above Physical Exam Physical Exam: General- oriented x 3, not in distress, speaks in sentences with no effort or accessory muscle use Eyes- anicteric Neck- no JVD Lungs- clear breath sounds bilaterally, no rales/wheezes Heart- normal rate, regular rhythm; no murmurs Abdomen- normal bowel sounds, nondistended, soft, nontender Extremities- no pretibial edema, no calf tenderness Neuro- alert, oriented x 3; no gross focal neurologic deficits Skin- warm & dry Results & Data Results & Data Vital Signs (Past 12 Hours) Vital Signs Temp Pulse Pulse Resp BP BP Pulse Ox 09/10/22 16:00 36.8 C 86 18 157/78 H 96 09/10/22 12:00 36.6 C 81 18 137/85 96 09/10/22 08:00 88 09/10/22 08:00 36.8 C 98 H 18 131/89 95 O2 Del Method 09/10/22 16:00 Room Air 09/10/22 12:00 Room Air 09/10/22 08:00 09/10/22 08:00 Room Air all noted and reviewed including below
[2022-09-11 06:24] LABS: Est GFR (African American) 127.6 ml/min; Est GFR (Non-African American) 110.1 ml/min
[2022-09-11 06:42] LABS: Partial Thromboplastin Ratio 1.2; Partial Thromboplastin Time 33.3 Seconds (21.0-31.0); Prothrombin Time 10.9 Seconds (9.0-12.0)
--- NOTE | 2022-09-11 07:58 | Progress Note ---
Date of Service September 11, 2022 Assessment & Plan (1) Bilateral pulmonary embolism: (2) Chronic anticoagulation: (3) Acute deep vein thrombosis (DVT) of right lower extremity: Admission and Anticipated Discharge Date Admission Date: September 08, 2022 Results & Data Vital Signs (Past 12 Hours) Vital Signs Temp Pulse Pulse Resp BP BP Pulse Ox 09/11/22 07:38 37.2 C 84 18 124/83 95 09/11/22 04:00 36.8 C 86 18 138/88 95 09/11/22 01:16 88 09/11/22 01:15 82 09/10/22 23:00 37.0 C 87 18 149/92 H 150/90 H 95 O2 Del Method 09/11/22 07:38 Room Air 09/11/22 04:00 Room Air 09/11/22 01:16 09/11/22 01:15 09/10/22 23:00 Room Air
[2022-09-11] MEDS: ENOXAPARIN 80 MG/0.8 ML SYR SQ SCH ×2 (08:13→17:47)
[2022-09-11] MEDS: METOPROLOL TARTRATE 50 MG TAB PO SCH ×2 (08:40→20:37)
[2022-09-11] MEDS: SIMVASTATIN 40 MG TAB PO SCH (08:41)
--- NOTE | 2022-09-11 09:08 | Pulmonology Progress Note ---
Date of Service September 11, 2022 Assessment & Plan (1) Bilateral pulmonary embolism: (2) Chronic anticoagulation: (3) Acute deep vein thrombosis (DVT) of right lower extremity: (4) Atrial fibrillation: Plan CTA chest 09/08/2022 personally reviewed: Pulmonary emboli appreciated shannan aterally No pulmonary infiltrate No clear right heart strain appreciated No mediastinal lymphadenopathy -- Acute pulmonary emboli sPESI 0, 1.1% risk of mortality Troponin 2.6 BNP 32 Continue with heparin drip -- Right lower extremity DVT This will be considered failure of Xarelto Would recommend transition to warfarin. 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 Please call directly with any questions Please note the above document was generated using voice recognition software. It may contain grammatical, syntax or spelling errors.Any formal questions or concerns about the content, text or information contained within the body of this dictation should be directly addressed to the provider for clarification. Admission and Anticipated Discharge Date Admission Date: September 08, 2022 Subjective Patient seen and examined at bedside. No acute distress, no adverse events overnight. Denies any headache, got mild dizziness when he was going to the bathroom but tolerated well He did walk around without any desaturation He was saturating 98% on room air. 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 CVS: S1-S2 positive, no murmurs or gallops Abdomen: Soft, nontender, nondistended, positive bowel sounds x4 Extremities: +2 pulses bilaterally radialis/ dorsalis pedis, no cyanosis, +1 pitting edema right lower extremity Neuro: Awake alert oriented x3 Psych: Normal mood and affect G/U: No Huff Skin: no rashes, warm and dry Lymphatic: no cervical or axillary lymphadenopathy Results & Data Results & Data Vital Signs (Past 12 Hours) Vital Signs Temp Pulse Pulse Resp BP BP Pulse Ox 09/11/22 07:38 37.2 C 84 18 124/83 95 09/11/22 04:00 36.8 C 86 18 138/88 95 09/11/22 01:16 88 09/11/22 01:15 82 09/10/22 23:00 37.0 C 87 18 149/92 H 150/90 H 95 O2 Del Method 09/11/22 07:38 Room Air 09/11/22 04:00 Room Air 09/11/22 01:16 09/11/22 01:15 09/10/22 23:00 Room Air Laboratory Results 09/10/22 05:39 09/11/22 05:30 PG Care Time/CCT Total # of Minutes Spent Total Time Spent with Patient: Total time spent is greater than 50% in coordination of care (as documented) at patient's floor/unit and/or counseling patient: Coding Level of Care Code 37411 SUB INP/OBS CARE 2/35MIN Diagnoses Bilateral pulmonary embolism I26.99 Chronic anticoagulation Z79.01 Acute deep vein thrombosis (DVT) of right lower extremity I82.401 Atrial fibrillation I48.91
--- NOTE | 2022-09-11 13:33 | Hospitalist Progress Note ---
Date of Service September 11, 2022 Assessment & Plan (1) Bilateral pulmonary embolism: Plan: (2) Acute deep vein thrombosis (DVT) of right lower extremity: (3) Chronic anticoagulation: Plan: Per Dr. Maximus Sutherland's notes with addendum: Patient presented with severe leg pain; not being able to walk. He has history of atrial fibrillation on Xarelto. Reports compliance with the anticoagulation; takes with dinner at night. CTA chest was done which showed bilateral PE. Venous duplex showed right lower extremity DVT. Pulmonology and hematology on board. Currently on heparin drip; continue. Echo pending. 09/10 Transitioned to Lovenox plus Coumadin Repeat INR tomorrow Discussed with Dr. Hernández Plan to discharge on Coumadin with Lovenox bridge, repeat INR Thursday Echocardiogram still pending 09/11 tolerating coumadin, lovenox well INR 1.0 continue Coumadin 7.5mg po daily with Lovenox bridge repeat INR tomorrow discussed with Dr. Hernández (4) Atrial fibrillation: Plan: paroxysmal, currently in sinus rhythm. Continues on metoprolol per home regimen, and anticoagulation with heparin. (5) Hyperlipidemia: Plan: On simvastatin Plan DVT proph: heparin, TEDs Full Code Dispo-anticipate discharge to home tomorrow ff up with [facility] coumadin clinic ff up with Dr. Hernández in 1 week Admission and Anticipated Discharge Date Admission Date: September 08, 2022 Subjective ff up for acute PE, RLE DVT, etc seen resting in bed, comfortable states he feels tired today had some dizziness with ambulation today no chest pain, dyspnea, palpitations, dizziness no other symptoms Review of Systems Review of Systems: all noted and negative except for above Physical Exam Physical Exam: General- oriented x 3, not in distress, speaks in sentences with no effort or accessory muscle use Eyes- anicteric Neck- no JVD Lungs- clear BS bilaterally, no rales/wheezes Heart- normal rate, regular rhythm; no murmurs Abdomen- normal bowel sounds, nondistended, soft, nontender Extremities- no pretibial edema, no calf tenderness Neuro- alert, oriented x 3; no gross focal neurologic deficits Skin- warm & dry Results & Data Results & Data Vital Signs (Past 12 Hours) Vital Signs Temp Pulse Pulse Pulse Pulse Resp Resp 09/11/22 11:08 37 C 75 18 09/11/22 09:16 128 H 112 H 108 H 20 09/11/22 07:38 37.2 C 84 18 09/11/22 04:00 36.8 C 86 18 Resp Resp BP Pulse Ox Pulse Ox Pulse Ox Pulse Ox 09/11/22 11:08 146/88 H 96 09/11/22 09:16 18 18 93 97 95 09/11/22 07:38 124/83 95 09/11/22 04:00 138/88 95 O2 Del Method 09/11/22 11:08 Room Air 09/11/22 09:16 09/11/22 07:38 Room Air 09/11/22 04:00 Room Air all noted and reviewed including below
[2022-09-11] MEDS: WARFARIN SOD 7.5 MG TAB PO SCH (16:19)
[2022-09-12] MEDS: ENOXAPARIN 80 MG/0.8 ML SYR SQ SCH ×2 (05:57→17:20)
[2022-09-12 07:26] LABS: Basophils # (auto) 0.04 K/uL (0-0.2); Basophils % (auto) 0.9 %; Eosinophils % (auto) 2.1 %; Hematocrit (blood only) 43.4 % (42.0-52.0); Hemoglobin 14.7 g/dl (14.0-18.0); Immature Granulocytes # (auto) 0.02 K/uL (0.01-0.20); Immature Granulocytes % (auto) 0.4 %; Lymphocytes # (auto) 0.79 K/uL (1.2-3.4); Lymphocytes % (auto) 16.9 %; Mean Corpuscular Hgb Conc 33.9 g/dL (32.0-36.0); Mean Corpuscular Volume 94.6 fL (80.0-100.0); Mean Platelet Volume 9.4 fL (9.4-12.4); Monocytes % (auto) 17.1 %; Neutrophils # (auto) 2.92 K/uL (1.40-6.50); Neutrophils % (auto) 62.6 %; Platelet Count 176 K/uL (130-400); RDW Coefficient of Variation 12.8 % (11.5-14.5); RDW Standard Deviation 44.4 fL (36.4-46.3); Red Blood Count 4.59 M/uL (4.70-6.10); White Blood Count 4.67 K/ul (4.8-10.8)
[2022-09-12 07:55] LABS: INR 1.1 (0.9-1.1); Partial Thromboplastin Ratio 1.3; Partial Thromboplastin Time 35.6 Seconds (21.0-31.0); Prothrombin Time 11.9 Seconds (9.0-12.0)
[2022-09-12] MEDS: METOPROLOL TARTRATE 50 MG TAB PO SCH ×2 (08:03→20:46)
[2022-09-12] MEDS: SIMVASTATIN 40 MG TAB PO SCH (08:03)
--- NOTE | 2022-09-12 14:31 | Hospitalist Progress Note ---
Date of Service September 12, 2022 Assessment & Plan (1) Bilateral pulmonary embolism: Plan: (2) Acute deep vein thrombosis (DVT) of right lower extremity: (3) Chronic anticoagulation: Plan: Per Dr. Maximus Sutherland's notes with addendum: Patient presented with severe leg pain; not being able to walk. He has history of atrial fibrillation on Xarelto. Reports compliance with the anticoagulation; takes with dinner at night. CTA chest was done which showed bilateral PE. Venous duplex showed right lower extremity DVT. Pulmonology and hematology on board. Currently on heparin drip; continue. Echo pending. 09/10 Transitioned to Lovenox plus Coumadin Repeat INR tomorrow Discussed with Dr. Hernández Plan to discharge on Coumadin with Lovenox bridge, repeat INR Thursday Echocardiogram still pending 09/11 tolerating coumadin, lovenox well INR 1.0 continue Coumadin 7.5mg po daily with Lovenox bridge repeat INR tomorrow discussed with Dr. Hernández 09/12 INR 1.1 continue coumadin 7.5mg po daily + Lovenox INR tomorrow patient declining Acute Rehab monitor for now (4) Atrial fibrillation: Plan: paroxysmal, currently in sinus rhythm. Continues on metoprolol per home regimen, and anticoagulation with heparin. (5) Hyperlipidemia: Plan: On simvastatin Plan DVT proph: heparin, TEDs Full Code Dispo-anticipate discharge to home tomorrow ff up with [facility] coumadin clinic ff up with Dr. Hernández in 1 week Admission and Anticipated Discharge Date Admission Date: September 08, 2022 Subjective ff up for acute PE and DVT, etc seen resting in bed, comfortable states he is still on the weak side no shortness of breath, palpitations, chest pain, dizziness no other symptoms Review of Systems Review of Systems: all noted and negative except for above Physical Exam Physical Exam: General- oriented x 3, not in distress, speaks in sentences with no effort or accessory muscle use Eyes- anicteric Neck- no JVD Lungs- clear BS bilaterally, no rales/wheezes Heart- normal rate, regular rhythm; no murmurs Abdomen- normal bowel sounds, nondistended, soft, nontender Extremities- no pretibial edema, no calf tenderness Neuro- alert, oriented x 3; no gross focal neurologic deficits Skin- warm & dry Results & Data Results & Data Vital Signs (Past 12 Hours) Vital Signs Temp Pulse Pulse Resp BP Pulse Ox O2 Del Method 09/12/22 11:07 36.4 C L 78 21 146/87 H 96 Room Air 09/12/22 08:03 36.8 C 73 21 146/88 H 97 Room Air 09/12/22 07:38 81 09/12/22 04:00 37.1 C 83 18 101/66 92 Room Air all noted and reviewed including below
[2022-09-12] MEDS: WARFARIN SOD 7.5 MG TAB PO SCH (16:40)
[2022-09-13] MEDS: ENOXAPARIN 80 MG/0.8 ML SYR SQ SCH ×2 (05:38→17:18)
[2022-09-13 06:34] LABS: INR 1.2 (0.9-1.1); Partial Thromboplastin Ratio 1.1; Partial Thromboplastin Time 31.3 Seconds (21.0-31.0); Prothrombin Time 12.4 Seconds (9.0-12.0)
[2022-09-13] MEDS: METOPROLOL TARTRATE 50 MG TAB PO SCH ×2 (07:45→20:39)
[2022-09-13] MEDS: SIMVASTATIN 40 MG TAB PO SCH (07:46)
--- NOTE | 2022-09-13 14:51 | Hospitalist Progress Note ---
Date of Service September 13, 2022 Assessment & Plan (1) Bilateral pulmonary embolism: Plan: (2) Acute deep vein thrombosis (DVT) of right lower extremity: (3) Chronic anticoagulation: Plan: Per Dr. Maximus Sutherland's notes with addendum: Patient presented with severe leg pain; not being able to walk. He has history of atrial fibrillation on Xarelto. Reports compliance with the anticoagulation; takes with dinner at night. CTA chest was done which showed bilateral PE. Venous duplex showed right lower extremity DVT. Pulmonology and hematology on board. Currently on heparin drip; continue. Echo pending. 09/10 Transitioned to Lovenox plus Coumadin Repeat INR tomorrow Discussed with Dr. Hernández Plan to discharge on Coumadin with Lovenox bridge, repeat INR Thursday Echocardiogram still pending 09/11 tolerating coumadin, lovenox well INR 1.0 continue Coumadin 7.5mg po daily with Lovenox bridge repeat INR tomorrow discussed with Dr. Hernández 09/12 INR 1.1 continue coumadin 7.5mg po daily + Lovenox INR tomorrow patient declining Acute Rehab monitor for now 09/13 still on the weak side continue monitoring INR 1.2 continue coumadin 7.5mg po daily + Lovenox INR tomorrow (4) Atrial fibrillation: Plan: paroxysmal, currently in sinus rhythm. Continues on metoprolol per home regimen, and anticoagulation with heparin. (5) Hyperlipidemia: Plan: On simvastatin Plan DVT proph: heparin, TEDs Full Code Dispo-anticipate discharge to home ff up with [facility] coumadin clinic ff up with Dr. Hernández in 1 week Admission and Anticipated Discharge Date Admission Date: September 08, 2022 Subjective ff up for acute PE and DVT, etc seen resting in bed, comfortable states he feels ok overall still has some dyspnea with exertion but improving still has some weakness no chest pain, fever/chills no bleeding no other symptoms Review of Systems Review of Systems: all noted and negative except for above Physical Exam Physical Exam: General- oriented x 3, not in distress, speaks in sentences with no effort or accessory muscle use Eyes- anicteric Neck- no JVD Lungs- clear BS BL Heart- normal rate, regular rhythm; no murmurs Abdomen- normal bowel sounds, nondistended, soft, nontender Extremities- no pretibial edema, no calf tenderness Neuro- alert, oriented x 3; no gross focal neurologic deficits Skin- warm & dry Results & Data Results & Data Vital Signs (Past 12 Hours) Vital Signs Temp Pulse Pulse Resp BP BP Pulse Ox 09/13/22 12:21 37.0 C 81 18 128/81 95 09/13/22 08:10 36.7 C 74 18 144/87 H 96 09/13/22 07:08 79 09/13/22 04:00 36.6 C 84 18 149/90 H 98 O2 Del Method 09/13/22 12:21 Room Air 09/13/22 08:10 Room Air 09/13/22 07:08 09/13/22 04:00 Room Air
[2022-09-13] MEDS: WARFARIN SOD 7.5 MG TAB PO SCH (17:18)
[2022-09-14] MEDS: ENOXAPARIN 80 MG/0.8 ML SYR SQ SCH (05:37)
[2022-09-14 06:43] LABS: Basophils # (auto) 0.04 K/uL (0-0.2); Basophils % (auto) 0.8 %; Eosinophils # (auto) 0.08 K/uL (0-0.50); Eosinophils % (auto) 1.6 %; Hemoglobin 14.9 g/dl (14.0-18.0); Immature Granulocytes # (auto) 0.04 K/uL (0.01-0.20); Immature Granulocytes % (auto) 0.8 %; Lymphocytes # (auto) 0.96 K/uL (1.2-3.4); Lymphocytes % (auto) 19.7 %; Mean Corpuscular Hemoglobin 31.9 pg (25.0-34.0); Mean Corpuscular Hgb Conc 33.9 g/dL (32.0-36.0); Mean Corpuscular Volume 94.2 fL (80.0-100.0); Mean Platelet Volume 9.1 fL (9.4-12.4); Monocytes # (auto) 0.86 K/uL (0.11-0.59); Monocytes % (auto) 17.6 %; Neutrophils % (auto) 59.5 %; Platelet Count 251 K/uL (130-400); RDW Coefficient of Variation 12.9 % (11.5-14.5); RDW Standard Deviation 44.5 fL (36.4-46.3); Red Blood Count 4.67 M/uL (4.70-6.10); White Blood Count 4.88 K/ul (4.8-10.8)
[2022-09-14 07:00] LABS: Creatinine Clr Calc Pharmacy 127.8 ml/min; Est GFR (African American) 125.9 ml/min; Est GFR (Non-African American) 108.6 ml/min
[2022-09-14 07:14] LABS: INR 1.3 (0.9-1.1); Prothrombin Time 13.7 Seconds (9.0-12.0)
[2022-09-14] MEDS: METOPROLOL TARTRATE 50 MG TAB PO SCH (08:29)
[2022-09-14] MEDS: SIMVASTATIN 40 MG TAB PO SCH (08:29)
--- NOTE | 2022-09-14 11:49 | Hospitalist Progress Note ---
Date of Service September 14, 2022 Assessment & Plan (1) Bilateral pulmonary embolism: Plan: (2) Acute deep vein thrombosis (DVT) of right lower extremity: (3) Chronic anticoagulation: Plan: Per Dr. Maximus Sutherland's notes with addendum: Patient presented with severe leg pain; not being able to walk. He has history of atrial fibrillation on Xarelto. Reports compliance with the anticoagulation; takes with dinner at night. CTA chest was done which showed bilateral PE. Venous duplex showed right lower extremity DVT. Pulmonology and hematology consulted transitioned from Heparin drip to Lovenox + Coumadin INR slow to rise patient provided education on self administation of Lovenox patient now comfortable with injecting Lovenox as of 09/14 : INR 1.3 discharge on: Lovenox 80mg BID and Coumadin 7.5mg daily ff up with Coumadin Clinic tomorrow ff up with [employer] Dr. Hernández in 1 week (4) Atrial fibrillation: Plan: paroxysmal, currently in sinus rhythm. Continues on metoprolol per home regimen, and now on coumadin (5) Hyperlipidemia: Plan: On simvastatin Plan DVT proph: heparin, TEDs Full Code Dispo-discharge to home ff up with [facility] coumadin clinic tomorrow ff up with Dr. Hernández in 1 week ff up with PCP in 1 week plan of care discussed with patient in detail and at length all questions answered he is understanding, agreeable, comfortable with the plan of care Admission and Anticipated Discharge Date Admission Date: September 08, 2022 Subjective FF UP ACUTE PE, DVT, ETC sitting up in bed, comfortable states he feels much better overall ambulating better states he does not need assistive device no chest pain, dyspnea, palpitations, dizziness no leg pain no other symptoms Review of Systems Review of Systems: all noted and negative except for above Physical Exam Physical Exam: General- oriented x 3, not in distress, speaks in sentences with no effort or accessory muscle use Eyes- anicteric Neck- no JVD Lungs- clear breath sounds bilaterally, no rales/wheezes Heart- normal rate, regular rhythm; no murmurs Abdomen- normal bowel sounds, nondistended, soft, nontender Extremities- no pretibial edema, no calf tenderness Neuro- alert, oriented x 3; no gross focal neurologic deficits Skin- warm & dry Results & Data Results & Data Vital Signs (Past 12 Hours) Vital Signs Temp Pulse Pulse Resp BP BP Pulse Ox 09/14/22 08:13 37.5 C 91 H 18 143/90 H 95 09/14/22 07:00 83 09/14/22 03:02 36.9 C 78 16 138/86 98 O2 Del Method 09/14/22 08:13 Room Air 09/14/22 07:00 09/14/22 03:02 Room Air all noted and reviewed including below
--- NOTE | 2022-09-28 18:28 | Discharge Summary ---
Discharge Summary Date of Service September 28, 2022 delayed entry date of service September 14 Notes For Next Care Provider Medication Changes From Visit Lovenox 80mg BID and Coumadin 7.5mg daily Admission HPI Per Admitting Provider 57 yo man with a recent URI treated wtih Augmentin states he was very sedentary last week from being sick and subsequently felt RLE pain after banging his R calf into the coffee table at home on Thursday. He reports that Sat and Sun he had terrible pain and was unable to walk. As it wasn't getting better he came in this am and has a RLE DVT with acute PE and evidence of right heart strain on the CT scan. He does report some dyspnea with exertion that began this morning but is not requiring oxygen. He does have tachycardia but is otherwise normotensive. He has a h/o atrial fibrillation and has been on Xarelto since 2016. He reports a h/o previous blood clot in his left left that was provoked by a surgery followed by prolonged time in a CAM boot. He denies any chest pain or other issues at this time. Admission Exam Per Admitting Provider CONSTITUTIONAL: WNWD, vitals as above, generally well-appearing, NAD EYES: normal conjunctivae, no scleral icterus ENT: external ear and nose normal, MMM NECK: trachea midline RESPIRATORY: clear to auscultation bilaterally, no crackles, rales or wheezes, normal respiratory effort CARDIOVASCULAR: regular rate and rhythm, S1 and 2 heard without murmurs, gallops or rubs, no JVD, no peripheral edema CHEST: inspection of chest was normal GASTROINTESTINAL: normal bowel sounds, soft, nontender, ND, no guarding MUSCULOSKELETAL: strength 5/5 throughout, head is normocephalic and atraumatic Lower extremities: right lower leg skin is stiff and tense and there is an increased warmth to the calf when compared to the left side. Distal RLE swelling >LLE SKIN: warm and dry NEUROLOGIC: CN 2-12 grossly intact, no sensory deficit, normal cognition, normal speech, no tremor PSYCHIATRIC: alert cooperative and oriented to person, place and time. Principal Dx & Hospital Course #1 = Principal Diagnosis (1) Bilateral pulmonary embolism: (2) Acute deep vein thrombosis (DVT) of right lower extremity: (3) Chronic anticoagulation: Per Dr. Maximus Sutherland's notes with addendum: Patient presented with severe leg pain; not being able to walk. He has history of atrial fibrillation on Xarelto. Reports compliance with the anticoagulation; takes with dinner at night. CTA chest was done which showed bilateral PE. Venous duplex showed right lower extremity DVT. Pulmonology and hematology consulted transitioned from Heparin drip to Lovenox + Coumadin INR slow to rise patient provided education on self administation of Lovenox patient now comfortable with injecting Lovenox as of 09/14 : INR 1.3 discharge on: Lovenox 80mg BID and Coumadin 7.5mg daily ff up with Coumadin Clinic tomorrow ff up with [employer] Dr. Hernández in 1 week (4) Atrial fibrillation: paroxysmal, currently in sinus rhythm. Continues on metoprolol per home regimen, and now on coumadin (5) Hyperlipidemia: On simvastatin Plan DVT proph: heparin, TEDs Full Code Dispo-discharge to home ff up with [facility] coumadin clinic tomorrow ff up with Dr. Hernández in 1 week ff up with PCP in 1 week plan of care discussed with patient in detail and at length all questions answered he is understanding, agreeable, comfortable with the plan of care Discharge Exam General- oriented x 3, not in distress, speaks in sentences with no effort or accessory muscle use Eyes- anicteric Neck- no JVD Lungs- clear breath sounds bilaterally, no rales/wheezes Heart- normal rate, regular rhythm; no murmurs Abdomen- normal bowel sounds, nondistended, soft, nontender Extremities- no pretibial edema, no calf tenderness Neuro- alert, oriented x 3; no gross focal neurologic deficits Skin- warm & dry Updated Medication List Medication Instructions Recorded Confirmed Type metoprolol tartrate 50 mg tablet 50 mg PO BID #60 tabs 01/17/19 09/23/22 History B-complex with vitamin C 1 cap PO DAILY 09/08/22 09/23/22 History atorvastatin 40 mg tablet 40 mg PO DAILY 09/19/22 09/23/22 History warfarin 5 mg tablet See Rx Instructions PO DAILY 09/23/22 09/23/22 History Hospital Stay Data Consultations 09/08/22 11:30 ED Decision to Admit Stat 09/08/22 14:55 Consult Pulmonology Routine 09/09/22 08:22 Consult Hematology Routine Diagnostic Imagining Performed 09/08/22 08:16 US venous doppler LE RT Stat 09/08/22 10:06 CT angio chest PE protocol Stat COMPARISON: Duplex venous Doppler study of same day FINDINGS: CTA: The heart is normal in size. Moderate coronary artery calcifications. There is no pericardial effusion. No thoracic aortic aneurysm. Bilateral lobar, segmental and subsegmental pulmonary emboli. No central pulmonary embolus. Mild straightening of the intraventricular septum. CT CHEST: Unremarkable thyroid. No lymphadenopathy. No pneumothorax, pleural effusion, airspace consolidation or pulmonary edema. No suspicious pulmonary nodules or masses identified. 4 mm subpleural solid nodule within the left lower lobe on image 110 series 4 is unchanged and benign. Central airways are patent. No acute process of the imaged upper abdomen. Hepatic steatosis. No acute fracture. Mild mid thoracic dextroscoliosis. Degenerative changes of the shoulders and spine. IMPRESSION: 1. Considerable amount of bilateral pulmonary emboli with findings suggestive of associated right heart strain. 2. No pleural effusion or airspace consolidation to suggest pulmonary infarct. ACT 112: Negative or not required by law. The above report was generated using voice recognition software. It may contain grammatical, syntax or spelling errors. Electronically signed by: Phong 09/09/22 17:34 CT Abd and Pelvis [CT abd pelvis wo con] Routine COMPARISON: None. FINDINGS: Lung bases: Trace bilateral lower lobe subpleural atelectasis, otherwise clear lung bases. Heart: Unremarkable. No significant pericardial effusion. Normal cardiac size. ABDOMEN: Liver: Scattered areas of fatty infiltration throughout the liver, difficult to exclude liver lesions. Gallbladder and bile ducts: Contracted gallbladder. No calcified stones. No ductal dilation. Pancreas: Unremarkable. No ductal dilation. Spleen: Unremarkable. No splenomegaly. Adrenals: Unremarkable. No mass. Kidneys and ureters: Mild bilateral perinephric stranding. Otherwise unremarkable bilateral kidneys. No obstructing stones. No hydronephrosis. Stomach and bowel: Unremarkable. No obstruction. No mucosal thickening. PELVIS: Appendix: No findings to suggest acute appendicitis. Bladder: Thickening of urinary bladder wall concerning for cystitis. No stones. Reproductive: Unremarkable as visualized. ABDOMEN and PELVIS: Intraperitoneal space: Unremarkable. No free air. No significant fluid collection. Bones/joints: Degenerative disease of the spine. No acute fracture. No dislocation. Soft tissues: Unremarkable. Vasculature: Mild atherosclerotic disease of the distal abdominal aorta with no aneurysm. Lymph nodes: Unremarkable. No enlarged lymph nodes. IMPRESSION: 1. Diffuse fatty liver, difficult to exclude liver lesions. If indicated, this may be further evaluated with CT of the upper abdomen with intravenous contrast, three-phase protocol. Remainder of abdominal viscera unremarkable. 2. No bowel obstruction or acute process throughout the gastrointestinal tract. 3. Thickening of urinary bladder wall, cannot exclude cystitis. If this represents a clinical concern, recommend follow-up with urinalysis. Electronically signed by: Sayra George MD 09/09/22 21:32 PM Pending Results Patient Have Any Pending Studies at Discharge: Yes Discharge Instructions Given to Patient (Per Discharging Provider) PLEASE REFER TO YOUR NEW MEDICATION LIST AND FOLLOW INSTRUCTIONS CAREFULLY. YOUR NEW MEDICATIONS INCLUDE: LOVENOX- blood thinner injection COUMADIN- blood thinner tablet PLEASE CALL YOUR PRIMARY CARE PHYSICIAN OR RETURN TO THE ER IF WITH WORSENING OF SYMPTOMS, INCLUDING chest pain, shortness of breath, dizziness, palpitations, leg swelling, fever/chills, bleeding, etc IF YOU SUSTAIN ANY HEAD INJURY, EVEN IF YOU HAVE NO SYMPTOMS, PLEASE PROCEED TO THE ER IMMEDIATELY FOR EVALUATION. FOLLOW UP WITH PRIMARY CARE PHYSICIAN, COUMADIN CLINIC- DR. GARRIDO, AND HEMATOLOGY CLINIC- DR. HERNÁNDEZ OUTLINED ABOVE. Total Time Total Time Spent Total Time Spent (In Minutes): >30 minutes
== END 2022-09-14 13:40 | disposition home or self-care (01) | DRG 299 ==
LOC: ED 07:45 → 2N 12:58 → SUATTDRO 12:58 → 2N 14:23